=== PATIENT | female | born 1935 | race Caucasian/White ===

== ENCOUNTER 2017-11-29 15:29 | Inpatient (IN) | payer MEDICARE, BC ==
[~2017-11-29] VITALS: Ht 160 cm; Wt 74.8 kg
[2017-11-29 15:34] VITALS: BP 126/46
--- NOTE | 2017-11-29 15:41 | Emergency Room Report ---
History of Present Illness General Chief Complaint: Multiple Trauma/Fall Source: Patient, EMS Present Illness HPI Patient is an 82-year-old female who presented after increased left hip pain after a fall. The patient reportedly fell onto her left side. Patient had normally been a ambulatory without assistance. Patient was walking down one step at the time. There is no reported loss of consciousness. The patient was noted to have increased pain to her left hip and had been unable to ambulate after fall. Brought in by EMS Allergies: Coded Allergies: No Known Allergies (Unverified , 11/29/17) Patient History Past Medical History: see triage record, dementia Reviewed Nursing Documentation: PMH: Agreed; PSxH: Agreed Nursing Documentation-PMH Past Medical History: No History, Except For Physical Exam Vital Signs Date Time Temp Pulse Resp B/P (MAP) Pulse Ox O2 Delivery O2 Flow Rate FiO2 11/29/17 15:24 98.2 75 18 154/87 99 Room Air 98.2 Sp02 EP Interpretation: reviewed, normal General Appearance: normal inspection, well appearing, no apparent distress, alert, Chronically Ill Head: atraumatic Eyes: bilateral eye PERRL ENT: normal ENT inspection, hearing grossly normal, normal voice Neck: normal inspection, full range of motion, supple, no bony tend Respiratory: normal inspection, lungs clear, normal breath sounds, no respiratory distress, no retraction, no wheezing Cardiovascular #1: regular rate, rhythm, no edema Gastrointestinal: normal inspection, normal bowel sounds, non tender, soft, no guarding, no hernia Genitourinary: no CVA tenderness Musculoskeletal: normal inspection, back normal, other - left hip external rotation and shortening Neurologic: normal inspection, alert, responsive, core blower III-XII nml as tested, speech normal, other - marked confusion Psychiatric: normal inspection, mood/affect normal Skin: normal inspection, normal color, no rash Medical Decision Making Diagnostic Impression: Primary Impression: Fall Additional Impressions: Left displaced femoral neck fracture Dementia ER Course Patient presented after a fall. Differential diagnosis included was not limited to neck fracture, CVA, close head injury, syncopal episode, basilar ischemia, hip fracture among others.Because of complexity of patient's case laboratory testing and imaging studies were ordered. EKG interpreted by me showed normal sinus rhythm 65with no acute ST or T Wave changes.CT of the left hip read by radiology showed the left hip fracture. The Correa catheter was placed due to the patient's inability to ambulate. The patient given IV pain medications. Dr. Satinder Santoyo was contacted for inpatient management. Dr. Sukh Braxton was contacted for Orthopedic consult. Labs Test 11/29/17 15:50 White Blood Count 7.3 K/UL (4.8-10.8) Red Blood Count 4.21 M/UL (4.20-5.40) Hemoglobin 13.4 G/DL (12.0-16.0) Hematocrit 38.7 % (37.0-47.0) Mean Corpuscular Volume 92 FL (80-99) Mean Corpuscular Hemoglobin 31.9 PG (27.0-31.0) Mean Corpuscular Hemoglobin Concent 34.7 G/DL (32.0-36.0) Red Cell Distribution Width 11.2 % (11.6-14.8) Platelet Count 152 K/UL (150-450) Mean Platelet Volume 7.0 FL (6.5-10.1) Neutrophils (%) (Auto) 78.1 % (45.0-75.0) Lymphocytes (%) (Auto) 14.3 % (20.0-45.0) Monocytes (%) (Auto) 6.2 % (1.0-10.0) Eosinophils (%) (Auto) 0.8 % (0.0-3.0) Basophils (%) (Auto) 0.6 % (0.0-2.0) EKG Diagnostic Results Rate: normal Rhythm: NSR ST Segments: no acute changes Last Vital Signs Date Time Temp Pulse Resp B/P (MAP) Pulse Ox O2 Delivery O2 Flow Rate FiO2 11/29/17 15:24 98.2 75 18 154/87 99 Room Air 98.2 Status: unchanged Disposition: ADMITTED INPATIENT Condition: Abner Denise Nov 29, 2017 15:41
[2017-11-29] MEDS ORDERED: Morphine Sulfate 2mg/ml Inj IVP ONE (16:15)
[2017-11-29 16:33] LABS: BASOPHILS % (AUTO) 0.6 % (0.0-2.0); EOSINOPHILS % (AUTO) 0.8 % (0.0-3.0); HEMATOCRIT 38.7 % (37.0-47.0); HEMOGLOBIN 13.4 G/DL (12.0-16.0); LYMPHOCYTES % (AUTO) 14.3 % (20.0-45.0); MEAN CORPUSCULAR VOLUME 92 FL (80-99); MONOCYTES % (AUTO) 6.2 % (1.0-10.0); NEUTROPHILS % (AUTO) 78.1 % (45.0-75.0); PLATELET COUNT 152 K/UL (150-450); RED BLOOD COUNT 4.21 M/UL (4.20-5.40); RED CELL DISTRIBUTION WIDTH 11.2 % (11.6-14.8); WHITE BLOOD COUNT 7.3 K/UL (4.8-10.8)
[2017-11-29 16:39] LABS: ALANINE AMINOTRANSFERASE 17 U/L (12-78); ALBUMIN 2.4 G/DL (3.4-5.0); ALBUMIN/GLOBULIN RATIO 1.3 (1.0-2.7); ALKALINE PHOSPHATASE 53 U/L (46-116); ANION GAP 7 mmol/L (5-15); ASPARTATE AMINO TRANSFERASE 26 U/L (15-37); BILIRUBIN,TOTAL 0.4 MG/DL (0.2-1.0); BLOOD UREA NITROGEN 17 mg/dL (7-18); CARBON DIOXIDE 21 MMOL/L (21-32); CHLORIDE 117 MMOL/L (98-107); CREATININE 0.4 MG/DL (0.55-1.30); POTASSIUM 3.2 MMOL/L (3.5-5.1); SODIUM 145 MMOL/L (136-145)
--- NOTE | 2017-11-29 16:55 | Diagnostic Imaging Report ---
Indication: Left hip pain Technique: No IV contrast per trauma protocol. Spiral acquisitions obtained through the left hip Multiplanar reconstructions were generated. Total dose length product 388.96 mGycm. CTDIvol(s) 15.09 mGy. Radiation dose was minimized using automated exposure control Comparison: none Findings: There is a fracture of the distal femoral neck. This is posteriorly angulated and slightly overriding. No associated pelvic fracture. There is minimal ecchymosis of the overlying subcutaneous fat. There are degenerative changes of the lumbosacral spine. There is colonic diverticulosis. Uterus is absent, presumably postsurgically. Impression: Positive for left distal femoral neck fracture Findings discussed by phone with Dr. Glover in the emergency room at the time of interpretation The CT scanner at [facility] is accredited by the [employer] and the scans are performed using protocols designed to limit radiation exposure to as low as reasonably achievable to attain images of sufficient resolution adequate for diagnostic evaluation.
[2017-11-29] MEDS ORDERED: VITAMIN D400 INTLU ORAL (17:14)
[2017-11-29] MEDS ORDERED: ATORVASTATIN CA20 MG ORAL (17:14)
[2017-11-29] MEDS ORDERED: TRAZODONE HCL150 MG ORAL (17:14)
[2017-11-29] MEDS ORDERED: VITAMIN B-122000 MC1 PO (17:14)
[2017-11-29] MEDS ORDERED: PROLIA60 MG/1 ML SUBQ (17:14)
[2017-11-29] MEDS ORDERED: CALCIUM 500 +1 EAC3 PO (17:14)
[2017-11-29 17:28] LABS: APPEARANCE,URINE CLEAR; BILIRUBIN, URINE NEGATIVE (NEGATIVE); COLOR,URINE PALE YELLOW; GLUCOSE, URINE (UA) 4+ (NEGATIVE); KETONES,URINE NEGATIVE (NEGATIVE); LEUKOCYTE ESTERASE ,URINE NEGATIVE (NEGATIVE); NITRITE,URINE NEGATIVE (NEGATIVE); PH,URINE 6 (4.5-8.0); PROTEIN,URINE 1+ (NEGATIVE); UROBILINOGEN,URINE NORMAL MG/DL (0.0-1.0)
[2017-11-29] MEDS ORDERED: Miralax 17gm pkt ORAL PRN (17:30)
[2017-11-29] MEDS ORDERED: Mylanta II UD 30ml ORAL PRN (17:30)
[2017-11-29 17:31] VITALS: BP 135/75
[2017-11-29] MEDS ORDERED: CALCIUM 500 +1 EAC2 PO (18:06)
[2017-11-29] MEDS ORDERED: CALCIUM 500-VI1 EACH PO (18:06)
[2017-11-29] MEDS ORDERED: VITAMIN B-12500 MCG ORAL (18:08)
[2017-11-29] MEDS ORDERED: TRAZODONE HCL50 MG ORAL (18:10)
[2017-11-29] MEDS ORDERED: VITAMIN D1000 UNI1 ORAL (18:11)
[2017-11-29] MEDS ORDERED: OCUVITE LUTEIN1 EAC2 PO (18:12)
[2017-11-29] MEDS ORDERED: ASPIR 8181 MG ORAL (18:12)
[2017-11-29] MEDS ORDERED: DOCUSATE SODIU100 MG ORAL (18:13)
[2017-11-29 18:30] VITALS: BP 139/62
[2017-11-29] MEDS: D5 1/2NS 1,000 ML IV SCH (19:22)
[2017-11-29 20:00] VITALS: BP 140/60
[2017-11-29] MEDS: Atorvastatin 20mg tab ORAL SCH (20:12)
[2017-11-29] MEDS: Zolpidem 5mg tab ORAL PRN ×2 (20:12→23:04)
[2017-11-29] MEDS: Heparin 5000 units/ml inj SUBQ SCH (20:16)
[2017-11-29] MEDS ORDERED: TraZODone HCl 25 mg tablet ORAL SCH (21:00)
[2017-11-30] VITALS (7 sets, daily range): BP systolic 100–154; BP diastolic 56–76
[2017-11-30] MEDS: Heparin 5000 units/ml inj SUBQ SCH ×2 (08:42→20:40)
[2017-11-30 08:49] LABS: HEMATOCRIT 36.3 % (37.0-47.0); MEAN CORPUSCULAR VOLUME 92 FL (80-99); PLATELET COUNT 140 K/UL (150-450); RED BLOOD COUNT 3.96 M/UL (4.20-5.40); RED CELL DISTRIBUTION WIDTH 11.2 % (11.6-14.8); WHITE BLOOD COUNT 9.9 K/UL (4.8-10.8)
[2017-11-30 09:09] LABS: ALANINE AMINOTRANSFERASE 22 U/L (12-78); ALBUMIN 3.5 G/DL (3.4-5.0); ALBUMIN/GLOBULIN RATIO 1.1 (1.0-2.7); ALKALINE PHOSPHATASE 65 U/L (46-116); ANION GAP 9 mmol/L (5-15); ASPARTATE AMINO TRANSFERASE 21 U/L (15-37); BLOOD UREA NITROGEN 20 mg/dL (7-18); CALCIUM 8.4 MG/DL (8.5-10.1); CARBON DIOXIDE 24 MMOL/L (21-32); CHLORIDE 106 MMOL/L (98-107); CREATININE 0.7 MG/DL (0.55-1.30); POTASSIUM 3.8 MMOL/L (3.5-5.1); SODIUM 138 MMOL/L (136-145)
--- NOTE | 2017-11-30 09:18 | Diagnostic Imaging Report ---
Indication: Altered mental status Technique: Contiguous 5 mm thick transaxial imaging of the head obtained in a Siemens Sensation [address] scanner. Soft tissue and bone windows generated. Automatic Exposure Control was utilized. Total Dose length Product (DLP): 2273.[address] Dose Index Volume (CTDIvol): 70.38,70.38 mGy Comparison: none Findings: There is moderate prominence of the ventricles, basal cisterns, and cerebral sulci consistent with atrophy. Moderate, nonspecific, white matter hypoattenuation is noted throughout the brain consistent with chronic small vessel disease. There is no midline shift, edema, acute hemorrhage, mass effect, or abnormal extra-axial fluid collections. Bones and extra osseous soft tissues are unremarkable. Impression: No acute intracranial bleed, mass effect or edema. Moderate atrophy of the brain. Evidence of chronic small vessel disease involving white matter tracts. [facility] has communicated the preliminary results to the Emergency Department. Their findings are largely concordant with this report. The CT scanner at [facility] is accredited by the [employer] and the scans are performed using dose optimization techniques as appropriate to a performed exam including Automatic Exposure control.
--- NOTE | 2017-11-30 09:47 | Diagnostic Imaging Report ---
Indication: Pain Findings: 3 views of the left elbow were obtained. No acute fractures, malalignment, erosions or periostitis are identified. Soft tissues are unremarkable. Impression: No acute injury
--- NOTE | 2017-11-30 09:56 | Diagnostic Imaging Report ---
Indications: hip pain Findings: Two views of the left hip were obtained. There is an acute intracapsular fracture of the left femoral neck. Slight impaction and displacement noted. Correa catheter is present. Bones are osteopenic. Degenerative changes of both sacroiliac joints noted. IMPRESSION: Acute left femoral neck fracture
--- NOTE | 2017-11-30 12:08 | Consultation ---
Consult Note Consult Note patient seen and evaluated. Left hip subcapital femoral neck fracture. Discussed with family and will proceed for left hip hemiarthroplasty once medically cleared. Plan on proceeding on Saturday. Thank you RIMMA BEARDEN Nov 30, 2017 12:08
[2017-11-30] MEDS: D5 1/2NS 1,000 ML IV SCH (13:52)
--- NOTE | 2017-11-30 14:15 | Consultation ---
History of Present Illness General Date patient seen: Nov 30, 2017 Chief Complaint: Multiple Trauma/Fall Present Illness HPI 82-year-old female with any major PMHx except for Alzheimer, presented to ER by paramedics after increased left hip pain after a fall. The patient reportedly fell onto her left side. There is no reported loss of consciousness. she was diagnosed to have L hip fracture and admitted for further work up. Allergies: Coded Allergies: ALPRAZOLAM (Verified Allergy, Unknown, 11/29/17) CYCLOBENZAPRINE (Verified Allergy, Unknown, 11/29/17) TRAMADOL (Verified Allergy, Unknown, 11/29/17) Medication History Scheduled Aspirin* (Aspir 81*), 81 MG ORAL DAILY, (Reported) Atorvastatin Calcium* (Atorvastatin Calcium*), 20 MG ORAL BEDTIME, (Reported) Cholecalciferol (Vitamin D3)* (Vitamin D*), 4,000 UNITS ORAL DAILY, (Reported) Cyanocobalamin (Vitamin B-12)* (Vitamin B-12*), 1,000 MCG ORAL EVERY OTHER DAY, (Reported) Denosumab (Prolia), 60 MG SUBQ EVERY 6 MONTHS, (Reported) Docusate Sodium* (Docusate Sodium*), 100 MG ORAL DAILY, (Reported) Lutein/Zeaxanthin (Ocuvite Lutein 25-5 Mg Softgel), 1 EACH PO DAILY, (Reported) Trazodone Hcl* (Desyrel*), 25 MG ORAL ONCE, (Reported) Miscellaneous Medications Calcium Carbonate/Vitamin D3 (Calcium 500 + Vit D Caplet), 2 EACH PO, (Reported) Patient History Healthcare decision maker MARGE ORTEGA Resuscitation status Full Code Advanced Directive on File Past Medical/Surgical History Past Medical/Surgical History: (1) Dementia Review of Systems Constitutional: Reports: no symptoms ENT: Reports: no symptoms Respiratory: Reports: no symptoms Cardiovascular: Reports: no symptoms Physical Exam General Appearance: WD/WN Lines, tubes and drains: peripheral HEENT: normocephalic, atraumatic Neck: non-tender, normal alignment Respiratory/Chest: chest wall non-tender, lungs clear, normal breath sounds Cardiovascular/Chest: normal peripheral pulses, normal rate Abdomen: normal bowel sounds Genitourinary/Rectal: normal genital exam Extremities: normal range of motion Last 24 Hour Vital Signs Date Time Temp Pulse Resp B/P (MAP) Pulse Ox O2 Delivery O2 Flow Rate FiO2 11/30/17 12:42 98.5 11/30/17 12:00 98.2 83 18 123/59 97 Room Air 98.2 11/30/17 11:43 98.0 11/30/17 08:00 98.0 95 20 100/69 95 Room Air 98.0 11/30/17 04:00 98.7 53 19 133/57 99 Room Air 98.7 11/30/17 00:00 97.8 73 18 141/65 98 Room Air 97.8 11/29/17 20:00 98.2 67 19 140/60 96 Room Air 98.2 11/29/17 18:32 97.1 60 14 135/75 100 Room Air 97.1 11/29/17 18:30 97.2 59 21 139/62 100 Room Air 97.2 11/29/17 17:31 97.1 60 14 135/75 100 Room Air 97.1 11/29/17 17:04 97.1 11/29/17 16:34 97.4 11/29/17 15:34 97.4 67 17 126/46 100 Room Air 97.4 11/29/17 15:24 98.2 75 18 154/87 99 Room Air 98.2 Intake and Output 11/29/17 11/30/17 19:00 07:00 Intake Total 550 ml Output Total 450 ml Balance 100 ml Intake IV Total 550 ml Output Urine Total 450 ml Laboratory Tests Test 11/29/17 15:50 11/29/17 17:05 11/30/17 08:25 White Blood Count 7.3 K/UL (4.8-10.8) 9.9 K/UL (4.8-10.8) Red Blood Count 4.21 M/UL (4.20-5.40) 3.96 M/UL (4.20-5.40) L Hemoglobin 13.4 G/DL (12.0-16.0) 13.0 G/DL (12.0-16.0) Hematocrit 38.7 % (37.0-47.0) 36.3 % (37.0-47.0) L Mean Corpuscular Volume 92 FL (80-99) 92 FL (80-99) Mean Corpuscular Hemoglobin 31.9 PG (27.0-31.0) H 32.9 PG (27.0-31.0) H Mean Corpuscular Hemoglobin Concent 34.7 G/DL (32.0-36.0) 35.9 G/DL (32.0-36.0) Red Cell Distribution Width 11.2 % (11.6-14.8) L 11.2 % (11.6-14.8) L Platelet Count 152 K/UL (150-450) 140 K/UL (150-450) L Mean Platelet Volume 7.0 FL (6.5-10.1) 6.2 FL (6.5-10.1) L Neutrophils (%) (Auto) 78.1 % (45.0-75.0) H % (45.0-75.0) Lymphocytes (%) (Auto) 14.3 % (20.0-45.0) L % (20.0-45.0) Monocytes (%) (Auto) 6.2 % (1.0-10.0) % (1.0-10.0) Eosinophils (%) (Auto) 0.8 % (0.0-3.0) % (0.0-3.0) Basophils (%) (Auto) 0.6 % (0.0-2.0) % (0.0-2.0) Prothrombin Time 10.8 SEC (9.30-11.50) Prothromb Time International Ratio 1.0 (0.9-1.1) Activated Partial Thromboplast Time 24 SEC (23-33) Sodium Level 145 MMOL/L (136-145) 138 MMOL/L (136-145) Potassium Level 3.2 MMOL/L (3.5-5.1) L 3.8 MMOL/L (3.5-5.1) Chloride Level 117 MMOL/L (98-107) H 106 MMOL/L (98-107) Carbon Dioxide Level 21 MMOL/L (21-32) 24 MMOL/L (21-32) Anion Gap 7 mmol/L (5-15) 9 mmol/L (5-15) Blood Urea Nitrogen 17 mg/dL (7-18) 20 mg/dL (7-18) H Creatinine 0.4 MG/DL (0.55-1.30) L 0.7 MG/DL (0.55-1.30) # Estimat Glomerular Filtration Rate mL/min (>60) mL/min (>60) Glucose Level 151 MG/DL (74-106) H 145 MG/DL (74-106) H Calcium Level 6.0 MG/DL (8.5-10.1) L 8.4 MG/DL (8.5-10.1) #L Total Bilirubin 0.4 MG/DL (0.2-1.0) 1.0 MG/DL (0.2-1.0) Aspartate Amino Transf (AST/SGOT) 26 U/L (15-37) 21 U/L (15-37) Alanine Aminotransferase (ALT/SGPT) 17 U/L (12-78) 22 U/L (12-78) Alkaline Phosphatase 53 U/L (46-116) 65 U/L (46-116) Troponin I 0.000 ng/mL (0.000-0.056) Total Protein 4.3 G/DL (6.4-8.2) L 6.6 G/DL (6.4-8.2) # Albumin 2.4 G/DL (3.4-5.0) L 3.5 G/DL (3.4-5.0) Globulin 1.9 g/dL 3.1 g/dL Albumin/Globulin Ratio 1.3 (1.0-2.7) 1.1 (1.0-2.7) Urine Color Pale yellow Urine Appearance Clear Urine pH 6 (4.5-8.0) Urine Specific [place] 1.020 (1.005-1.035) Urine Protein 1+ (NEGATIVE) H Urine Glucose (UA) 4+ (NEGATIVE) H Urine Ketones Negative (NEGATIVE) Urine Occult Blood 2+ (NEGATIVE) H Urine Nitrite Negative (NEGATIVE) Urine Bilirubin Negative (NEGATIVE) Urine Urobilinogen Normal MG/DL (0.0-1.0) Urine Leukocyte Esterase Negative (NEGATIVE) Urine RBC 5-10 /HPF (0 - 2) H Urine WBC 2-4 /HPF (0 - 2) Urine Squamous Epithelial Cells Few /LPF (NONE/OCC) Urine Amorphous Sediment Few /LPF (NONE) H Urine Bacteria Moderate /HPF (NONE) H Urine Fine Granular Casts 0-2 /LPF (NONE) H Urine Yeast Few /HPF (NONE) H Urine HCG, Qualitative Negative (NEGATIVE) Differential Total Cells Counted 100 Neutrophils % (Manual) 87 % (45-75) H Lymphocytes % (Manual) 3 % (20-45) L Monocytes % (Manual) 10 % (1-10) Eosinophils % (Manual) 0 % (0-3) Basophils % (Manual) 0 % (0-2) Band Neutrophils 0 % (0-8) Platelet Estimate Decreased L Platelet Morphology Normal Red Blood Cell Morphology Normal Thyroid Stimulating Hormone (TSH) 0.892 uiU/mL (0.358-3.740) Height (Feet): 5 Height (Inches): 3.00 Weight (Pounds): 165 Medications Current Medications Medications (Trade) Dose Ordered Sig/Ebony Route PRN Reason Start Time Stop Time Status Last Admin Dose Admin Acetaminophen (Tylenol) 650 mg Q4H PRN ORAL T>100.5 11/29/17 17:30 12/29/17 17:29 11/30/17 11:43 Al Hydroxide/Mg Hydroxide (Mylanta II) 30 ml Q6H PRN ORAL dyspepsia 11/29/17 17:30 12/29/17 17:29 Atorvastatin Calcium (Lipitor) 20 mg BEDTIME ORAL 11/29/17 21:00 12/29/17 20:59 11/29/17 20:12 Dextrose (Dextrose 50%) 25 ml STAT PRN IV Hypoglycemia 11/29/17 17:45 12/29/17 17:44 Dextrose (Dextrose 50%) 50 ml STAT PRN IV Hypoglycemia 11/29/17 17:30 12/29/17 17:29 Dextrose/Sodium Chloride 1,000 ml @ 50 mls/hr Q20H IV 11/29/17 17:29 12/29/17 17:28 11/30/17 13:52 Heparin Sodium (Porcine) (Heparin 5000 units/ml) 5,000 units EVERY 12 HOURS SUBQ 11/30/17 21:00 12/01/17 12:00 Heparin Sodium (Porcine) (Heparin 5000 units/ml) 5,000 units EVERY 12 HOURS SUBQ 12/02/17 21:00 01/01/18 20:59 Ondansetron HCl (Zofran) 4 mg Q6H PRN IVP Nausea & Vomiting 11/29/17 17:30 12/29/17 17:29 Polyethylene Glycol (Miralax) 17 gm HSPRN PRN ORAL Constipation 11/29/17 17:30 12/29/17 17:29 Trazodone HCl (Desyrel) 25 mg BEDTIME ORAL 11/29/17 21:00 12/29/17 20:59 11/29/17 20:12 Zolpidem Tartrate (Ambien) 5 mg HSPRN PRN ORAL Insomnia 11/29/17 21:00 12/06/17 20:59 11/29/17 23:04 Assessment/Plan Problem List: (1) Left displaced femoral neck fracture ICD Codes: S72.002A - Fracture of unspecified part of neck of left femur, initial encounter for closed fracture SNOMED: 5863430, 768418627 (2) Dementia ICD Codes: F03.90 - Unspecified dementia without behavioral disturbance SNOMED: 68931705 Assessment/Plan med/surg admission symptomatic treatment pain control DVT prophylaxis surgical evaluation Pt is medically cleared for surgery. Jose Garrison MD Nov 30, 2017 14:15
[2017-11-30] MEDS ORDERED: TraZODone 50mg tab ORAL SCH (14:30)
[2017-11-30] MEDS ORDERED: Morphine Sulfate 4mg/ml Inj IVP PRN (17:30)
[2017-11-30] MEDS: Atorvastatin 20mg tab ORAL SCH (20:36)
--- NOTE | 2017-11-30 21:15 | History and Physical Report ---
DATE OF ADMISSION: 11/29/2017 APPROXIMATE TIME: At 9 a.m. SEED POTATO ARRANGER: 1. Fabian Ny M.D. 2. Nancy Durham M.D. 3. Sukh Braxton M.D. CHIEF COMPLAINT: Fracture, left hip. BRIEF HISTORY: This is an 82-year-old female, who lives at home with history of dementia, apparently tripped and fell on left hip, who came to [facility], diagnosed with left hip fracture and admitted to medical floor. Currently, calm, confused, in bed. No complaints. at bedside. PAST MEDICAL HISTORY: Alzheimer dementia. PAST SURGICAL HISTORY: Bladder prolapse. ALLERGIES: Alprazolam, cyclobenzaprine, and tramadol. MEDICATIONS: Include Lipitor, , Ambien, heparin, Zofran, MiraLAX, and Tylenol. SOCIAL HISTORY: No smoke. No alcohol. No intravenous drug abuse. FAMILY HISTORY: Noncontributory. REVIEW OF SYSTEMS: No chest pain. No shortness of breath. No nausea. No diarrhea. No loss of consciousness. PHYSICAL EXAMINATION: GENERAL: Calm in bed, oriented x2, in no acute distress. VITAL SIGNS: Temperature is 98, pulse 95, respirations 20, and blood pressure 100/69. CARDIOVASCULAR: No murmur. LUNGS: Distant and clear. ABDOMEN: Bowel sounds positive. Soft, nontender, and nondistended. EXTREMITIES: No cyanosis, clubbing, or edema. Left leg slightly half-inch shorter, externally rotated. NEUROLOGIC: The patient moves all extremities, slightly weak. LABORATORY AND DIAGNOSTIC DATA: Platelets 140, otherwise CBC is normal. BMP shows BUN 20, glucose 145, otherwise normal. INR is 1.0. Urinalysis show 2+ occult blood, 4+ glucose. ASSESSMENT: 1. Fall, left hip fracture. 2. Alzheimer dementia. 3. Diabetes. PLAN: 1. Blood sugar control. 2. Resume home medications. 3. OT/PT and dietary evaluation. 4. CBC, BMP in the morning preop for possible surgery. 5. We will continue to follow the patient medically. Satinder Santoyo D.O. DR: LAZARO JOB#: [id number] CC:
--- NOTE | 2017-11-30 21:30 | Consultation ---
DATE OF CONSULTATION: 11/30/2017 ORTHOPEDIC CONSULTATION CONSULTING PHYSICIAN: Sukh Braxton M.D. REQUESTING PHYSICIAN: Satinder Santoyo D.O. CHIEF COMPLAINT: Left hip fracture. BRIEF HISTORY: The patient is an 82-year-old female, who has history of Alzheimer dementia, who misstepped on 2 steps and fell down landing on her left hip. She had immediate onset of pain about the left hip. She was brought in via paramedics to [facility]. X-ray and CT scan showed a subcapital femoral neck fracture. She was admitted for definitive care. PAST MEDICAL HISTORY: Significant for history of Alzheimer dementia, although generally she is very healthy. PAST SURGICAL HISTORY: None. MEDICATIONS: Reviewed and reconciled. ALLERGIES: She has poor reaction to alprazolam, cyclobenzaprine, and tramadol which made her hallucinate for a couple of days. SOCIAL HISTORY: She has very supportive family. Her is at the bedside and she is alert and oriented. Also her son was at the bedside and history was obtained from them. She is apparently generally independent ambulator although because of Alzheimer's, she does not ambulate very often. REVIEW OF SYSTEMS: Noncontributory. PHYSICAL EXAMINATION: GENERAL: She is a very pleasant lady, cooperative with examination. She has dementia and she is alert and oriented. MUSCULOSKELETAL: Examination of left hip reveals that she has pain about the left hip with flexion, extension, abduction, external and internal rotation. Her left leg is slightly shortened and externally rotated. SKIN: There is no skin breakdown or ulcers. DIAGNOSTIC DATA: X-ray of left hip was reviewed. There is evidence of a left hip subcapital femoral neck fracture with displacement. IMPRESSION: Garden IV subcapital femoral neck fracture with displacement. PLAN: At this time, we will go ahead and proceed with left hip hemiarthroplasty. Risks, benefits, and complications of surgery were discussed with the family. They all understand. We will go ahead and proceed with surgical intervention as described. Risks, benefits, and complications of surgery were discussed with them of possible infection, bleeding, neurovascular complication, possibility of leg length discrepancy, need for walker or even wheelchair down the line as well as blood clots, DVT, and PE were discussed. Possible dislocation was discussed. All understand the risks and complications of the surgery and would like to proceed with it. All questions were answered. We will go ahead and proceed with surgery once she is medically optimized. I am going to order 2D echo to be done and plan on proceeding in the next day or two once she is medically optimized for surgery. All questions were answered of the family. Consent will be signed by the family. Sukh Braxotn M.D. DR: Bk JOB#: [id number] CC:
[2017-12-01 04:00] VITALS: BP 143/58
[2017-12-01 07:27] LABS: BASOPHILS % (AUTO) 0.5 % (0.0-2.0); EOSINOPHILS % (AUTO) 2.1 % (0.0-3.0); HEMATOCRIT 35.8 % (37.0-47.0); HEMOGLOBIN 12.6 G/DL (12.0-16.0); MEAN CORPUSCULAR VOLUME 93 FL (80-99); MONOCYTES % (AUTO) 7.9 % (1.0-10.0); NEUTROPHILS % (AUTO) 79.5 % (45.0-75.0); PLATELET COUNT 129 K/UL (150-450); RED BLOOD COUNT 3.86 M/UL (4.20-5.40); RED CELL DISTRIBUTION WIDTH 11.1 % (11.6-14.8)
[2017-12-01 07:51] LABS: ANION GAP 8 mmol/L (5-15); BLOOD UREA NITROGEN 16 mg/dL (7-18); CALCIUM 8.3 MG/DL (8.5-10.1); CARBON DIOXIDE 24 MMOL/L (21-32); CHLORIDE 105 MMOL/L (98-107); CREATININE 0.7 MG/DL (0.55-1.30); POTASSIUM 3.9 MMOL/L (3.5-5.1); SODIUM 137 MMOL/L (136-145)
[2017-12-01 08:00] VITALS: BP 146/70
--- NOTE | 2017-12-01 08:46 | General Progress Note ---
Assessment/Plan Problem List: (1) Dementia ICD Codes: F03.90 - Unspecified dementia without behavioral disturbance SNOMED: 56455589 (2) Fall ICD Codes: W19.XXXA - Unspecified fall, initial encounter SNOMED: 6210311, 024428953 (3) Left displaced femoral neck fracture ICD Codes: S72.002A - Fracture of unspecified part of neck of left femur, initial encounter for closed fracture SNOMED: 6520697, [id number] Status: unchanged Assessment/Plan ot pt diet pain control cbc bmp am pending sx Subjective Constitutional: Reports: weakness Allergies: Coded Allergies: ALPRAZOLAM (Verified Allergy, Unknown, 11/29/17) CYCLOBENZAPRINE (Verified Allergy, Unknown, 11/29/17) TRAMADOL (Verified Allergy, Unknown, 11/29/17) All Systems: reviewed and negative except above Subjective sleepy calm pending sx Objective Last 24 Hour Vital Signs Date Time Temp Pulse Resp B/P (MAP) Pulse Ox O2 Delivery O2 Flow Rate FiO2 12/01/17 08:00 98.1 70 20 146/70 97 98.1 12/01/17 04:00 97.7 56 18 143/58 98 Room Air 97.7 11/30/17 23:55 97.9 55 16 154/61 99 Room Air 97.9 11/30/17 20:00 98.1 57 18 122/56 98 Room Air 98.1 11/30/17 16:00 98.9 63 18 111/76 98 Room Air 98.9 11/30/17 12:42 98.5 11/30/17 12:00 98.2 83 18 123/59 97 Room Air 98.2 11/30/17 11:43 98.0 Intake and Output 11/30/17 12/01/17 19:00 07:00 Intake Total 650 ml 550 ml Output Total 400 ml 600 ml Balance 250 ml -50 ml Intake IV Total 250 ml 550 ml Other 400 ml Output Urine Total 400 ml 600 ml Stool Total 0 ml Laboratory Tests 12/01/17 06:30: White Blood Count 8.0, Red Blood Count 3.86L, Hemoglobin 12.6, Hematocrit 35.8L , Mean Corpuscular Volume 93, Mean Corpuscular Hemoglobin 32.6H, Mean Corpuscular Hemoglobin Concent 35.1, Red Cell Distribution Width 11.1L, Platelet Count 129L, Mean Platelet Volume 7.1, Neutrophils (%) (Auto) 79.5H, Lymphocytes (%) (Auto) 10.0L, Monocytes (%) (Auto) 7.9, Eosinophils (%) (Auto) 2.1, Basophils (%) (Auto) 0.5, Sodium Level 137, Potassium Level 3.9, Chloride Level 105, Carbon Dioxide Level 24, Anion Gap 8, Blood Urea Nitrogen 16, Creatinine 0.7, Estimat Glomerular Filtration Rate , Glucose Level 131H, Calcium Level 8.3L Height (Feet): 5 Height (Inches): 3.00 Weight (Pounds): 165 General Appearance: lethargic EENT: normal ENT inspection Neck: normal alignment Cardiovascular: normal peripheral pulses, normal rate, regular rhythm Respiratory/Chest: chest wall non-tender, lungs clear, normal breath sounds Abdomen: normal bowel sounds, non tender, soft Extremities: normal inspection Edema: no edema noted Arm (L), no edema noted Arm (R), no edema noted Leg (L), no edema noted Leg (R), no edema noted Pedal (L), no edema noted Pedal (R), no edema noted Generalized Neurologic: motor weakness Skin: normal pigmentation, warm/dry ARVIN JOVEL Dec 01, 2017 08:46
[2017-12-01] MEDS: Memantine 5 MG TAB ORAL SCH ×2 (08:57→18:00)
[2017-12-01] MEDS: Heparin 5000 units/ml inj SUBQ SCH (09:00)
[2017-12-01] MEDS: D5 1/2NS 1,000 ML IV SCH (09:04)
--- NOTE | 2017-12-01 11:55 | Diagnostic Imaging Report ---
Indication: Chest pain Comparison: None A single view chest radiograph was obtained. Findings: No definite infiltrate or pulmonary vascular congestion identified. The heart is enlarged. The aorta is mildly enlarged consistent with atherosclerotic vascular disease. The bones are osteopenic. Impression: No acute disease
[2017-12-01 12:00] VITALS: BP 159/75
--- NOTE | 2017-12-01 12:19 | Pulmonology Progress Note ---
Assessment/Plan Problems: (1) Left displaced femoral neck fracture (2) Dementia (3) Delirium Assessment/Plan symptomatic treatment pain control dvt prophylaxis surgery in AM. Subjective ROS Limited/Unobtainable: No Interval Events: still confused, wants to go home now Allergies: Coded Allergies: ALPRAZOLAM (Verified Allergy, Unknown, 11/29/17) CYCLOBENZAPRINE (Verified Allergy, Unknown, 11/29/17) TRAMADOL (Verified Allergy, Unknown, 11/29/17) Objective Last 24 Hour Vital Signs Date Time Temp Pulse Resp B/P (MAP) Pulse Ox O2 Delivery O2 Flow Rate FiO2 12/01/17 08:00 98.1 70 20 146/70 97 98.1 12/01/17 04:00 97.7 56 18 143/58 98 Room Air 97.7 11/30/17 23:55 97.9 55 16 154/61 99 Room Air 97.9 11/30/17 20:00 98.1 57 18 122/56 98 Room Air 98.1 11/30/17 16:00 98.9 63 18 111/76 98 Room Air 98.9 11/30/17 12:42 98.5 Intake and Output 11/30/17 12/01/17 19:00 07:00 Intake Total 650 ml 550 ml Output Total 400 ml 600 ml Balance 250 ml -50 ml Intake IV Total 250 ml 550 ml Other 400 ml Output Urine Total 400 ml 600 ml Stool Total 0 ml Objective General Appearance: WD/WN Lines, tubes and drains: peripheral HEENT: normocephalic, atraumatic Neck: non-tender, normal alignment Respiratory/Chest: chest wall non-tender, lungs clear Breasts: no masses Cardiovascular/Chest: normal rate, regularly irregular Genitourinary/Rectal: normal genital exam, heme negative stool Extremities: normal range of motion Microbiology Date/Time Source Procedure Growth Status 11/29/17 17:05 Urine,Clean Catch Urine Culture - Preliminary NO GROWTH AFTER 24 HOURS Resulted Laboratory Tests 12/01/17 06:30: White Blood Count 8.0, Red Blood Count 3.86L, Hemoglobin 12.6, Hematocrit 35.8L , Mean Corpuscular Volume 93, Mean Corpuscular Hemoglobin 32.6H, Mean Corpuscular Hemoglobin Concent 35.1, Red Cell Distribution Width 11.1L, Platelet Count 129L, Mean Platelet Volume 7.1, Neutrophils (%) (Auto) 79.5H, Lymphocytes (%) (Auto) 10.0L, Monocytes (%) (Auto) 7.9, Eosinophils (%) (Auto) 2.1, Basophils (%) (Auto) 0.5, Sodium Level 137, Potassium Level 3.9, Chloride Level 105, Carbon Dioxide Level 24, Anion Gap 8, Blood Urea Nitrogen 16, Creatinine 0.7, Estimat Glomerular Filtration Rate , Glucose Level 131H, Calcium Level 8.3L Current Medications Medications (Trade) Dose Ordered Sig/Ebony Route PRN Reason Start Time Stop Time Status Last Admin Dose Admin Acetaminophen (Tylenol) 650 mg Q4H PRN ORAL T>100.5 11/29/17 17:30 12/29/17 17:29 11/30/17 11:43 Acetaminophen/ Hydrocodone Bitart ([place] 5/325) 1 tab Q6H PRN ORAL Moderate Pain (Pain Scale 4-6) 11/30/17 17:30 12/07/17 17:29 Al Hydroxide/Mg Hydroxide (Mylanta II) 30 ml Q6H PRN ORAL dyspepsia 11/29/17 17:30 12/29/17 17:29 Atorvastatin Calcium (Lipitor) 20 mg BEDTIME ORAL 11/29/17 21:00 12/29/17 20:59 11/30/17 20:36 Dextrose (Dextrose 50%) 25 ml STAT PRN IV Hypoglycemia 11/29/17 17:45 12/29/17 17:44 Dextrose (Dextrose 50%) 50 ml STAT PRN IV Hypoglycemia 11/29/17 17:30 12/29/17 17:29 Dextrose/Sodium Chloride 1,000 ml @ 50 mls/hr Q20H IV 11/29/17 17:29 12/29/17 17:28 12/01/17 09:04 Heparin Sodium (Porcine) (Heparin 5000 units/ml) 5,000 units EVERY 12 HOURS SUBQ 12/02/17 21:00 01/01/18 20:59 Memantine (Namenda) 5 mg BID ORAL 12/01/17 09:00 12/31/17 08:59 12/01/17 08:57 Morphine Sulfate (Morphine Sulfate) 2 mg Q4H PRN IVP Severe Pain (Pain Scale 7-10) 11/30/17 17:30 12/07/17 17:29 Ondansetron HCl (Zofran) 4 mg Q6H PRN IVP Nausea & Vomiting 11/29/17 17:30 12/29/17 17:29 Polyethylene Glycol (Miralax) 17 gm HSPRN PRN ORAL Constipation 11/29/17 17:30 12/29/17 17:29 Quetiapine Fumarate (SEROquel) 25 mg EVERY 6 HOURS PRN ORAL Agitation 11/30/17 18:45 12/30/17 18:44 12/01/17 10:51 Quetiapine Fumarate (SEROquel) 25 mg QHS ORAL 11/30/17 21:00 12/30/17 20:59 11/30/17 19:37 Zolpidem Tartrate (Ambien) 5 mg HSPRN PRN ORAL Insomnia 11/29/17 21:00 12/06/17 20:59 11/29/17 23:04 Jose Garrison MD Dec 01, 2017 12:19
[2017-12-01 16:00] VITALS: BP 143/91
--- NOTE | 2017-12-01 17:03 | Cardiology Report ---
APPROVED REPORT EXAM: Two-dimensional and M-mode echocardiogram with Doppler and color Doppler. INDICATION Pre-op M-Mode DIMENSIONS IVSd1.1 (0.7-1.1cm)Left Atrium (MM)4.4 (1.6-4.0cm) LVDd6.3 (3.5-5.6cm)Aortic Root3.3 (2.0-3.7cm) PWd0.9 (0.7-1.1cm)Aortic Cusp Exc.2.0 (1.5-2.0cm) LVDs3.7 (2.5-4.0cm) PWs1.2 cm Technically limited and difficult study due to poor acoustical windows. Images taken from subcostal. Normal left ventricular chamber size, systolic function and wall motion to the extent visualized. Left ventricular ejection fraction estimated to be 55-60%. No evidence of left ventricular hypertrophy. No evidence of pericardial or pleural effusion. All other cardiac chamber sizes are within normal limits. Focal aortic valve sclerosis with adequate cusp excursion. Thickened mitral valve leaflets with normal excursion. Mild mitral annulus and aortic root calcification. Pulmonic valve not well visualized. Normal tricuspid valve structure. IVC is normal in size and collapsible with respiration. A color flow and spectral Doppler study was performed and revealed: Trace aortic regurgitation. Trace mitral regurgitation. Mitral inflow velocities indicates possible pseudo normalization pattern implying significant left ventricular diastolic dysfunction. Trace tricuspid regurgitation.
--- NOTE | 2017-12-01 17:32 | Cardiology Report ---
APPROVED REPORT EKG Measurement Heart [id number] Normal sinus rhythm Normal ECG
[2017-12-01 19:56] VITALS: BP 114/77
[2017-12-01] MEDS: Norco 5mg/325mg tab ORAL PRN (20:34)
[2017-12-01] MEDS: Atorvastatin 20mg tab ORAL SCH (20:34)
[2017-12-02] VITALS (16 sets, daily range): BP systolic 130–163; BP diastolic 62–97
[2017-12-02] MEDS: Norco 5mg/325mg tab ORAL PRN ×2 (04:19→20:24)
[2017-12-02] MEDS: D5 1/2NS 1,000 ML IV SCH (04:20)
[2017-12-02 07:03] LABS: BASOPHILS % (AUTO) 0.8 % (0.0-2.0); EOSINOPHILS % (AUTO) 2.5 % (0.0-3.0); HEMATOCRIT 37.1 % (37.0-47.0); HEMOGLOBIN 12.5 G/DL (12.0-16.0); LYMPHOCYTES % (AUTO) 11.8 % (20.0-45.0); MEAN CORPUSCULAR VOLUME 94 FL (80-99); MONOCYTES % (AUTO) 10.1 % (1.0-10.0); NEUTROPHILS % (AUTO) 74.8 % (45.0-75.0); PLATELET COUNT 101 K/UL (150-450); RED BLOOD COUNT 3.93 M/UL (4.20-5.40); RED CELL DISTRIBUTION WIDTH 11.2 % (11.6-14.8); WHITE BLOOD COUNT 7.8 K/UL (4.8-10.8)
[2017-12-02 07:18] LABS: ANION GAP 8 mmol/L (5-15); BLOOD UREA NITROGEN 13 mg/dL (7-18); CALCIUM 7.9 MG/DL (8.5-10.1); CARBON DIOXIDE 23 MMOL/L (21-32); CHLORIDE 106 MMOL/L (98-107); CREATININE 0.7 MG/DL (0.55-1.30); POTASSIUM 3.9 MMOL/L (3.5-5.1); SODIUM 137 MMOL/L (136-145)
[2017-12-02] MEDS: Memantine 5 MG TAB ORAL SCH (07:38)
--- NOTE | 2017-12-02 08:00 | Consultation ---
DATE OF CONSULTATION: 12/01/2017 NOTE: "POOR AUDIO QUALITY" CONSULTING PHYSICIAN: Nancy Durham M.D. ATTENDING/REFERRING PHYSICIAN: Satinder Santoyo D.O. HISTORY OF PRESENT ILLNESS: The patient is an 82-year-old female patient with left hip fracture but this patient also has altered mental status, confusion. She has got poor insight into her illness. She has got no logical plan for her own self-care. Low energy, poor appetite, and loss of interest in activity. psychiatric consultation also. she has had progressive decline in cognition and there has been agitation and insomnia . Because her cognition has declined below baseline, her attending has requested daily psychiatric consultation. As far as very confused, is oriented x2, but not to date or the place that she is in. she denies any suicidal or homicidal ideations at this time. ALLERGIES: She has no known drug allergies. SOCIAL HISTORY: The is patient is financially supported by [employer] and Medicare. As far as she is retired. SUBSTANCE ABUSE HISTORY: Denies drug and alcohol use. MEDICAL HISTORY: see Internal Medicine note for further details. MENTAL STATUS EXAMINATION: This is an 82-year-old female. Appearance disheveled. Attitude irritable and agitated. Affect guarded and restricted. Intellect poor. Mood depressed and anxious. Motor activity, psychomotor retardation. Attention span is poor. paranoia. Insight and judgment is poor. DIAGNOSES: Major depression with psychotic features, rule out pseudodementia. Medical, . Psychosocial stressors, financial. PLAN: The plan for this patient is to treat her with Seroquel 25 mg p.o. nightly and 25 mg Seroquel q.6 hours p.r.n. . I will also add Namenda 5 mg twice a day to prevent further decline in cognition. provided 20 minutes of supportive therapy . Chart was reviewed and discussed with staff. The patient was seen and assessed in the room. . Seen and assessed at bedside. I would like to thank Dr. Satinder Santoyo for this interesting consultation. Nancy Durham M.D. DR: Rich JOB#: [id number] CC:
--- NOTE | 2017-12-02 09:10 | Consultation ---
History of Present Illness General Date patient seen: Dec 02, 2017 Chief Complaint: Multiple Trauma/Fall Present Illness Allergies: Coded Allergies: ALPRAZOLAM (Verified Allergy, Unknown, 11/29/17) CYCLOBENZAPRINE (Verified Allergy, Unknown, 11/29/17) TRAMADOL (Verified Allergy, Unknown, 11/29/17) Medication History Scheduled Aspirin* (Aspir 81*), 81 MG ORAL DAILY, (Reported) Atorvastatin Calcium* (Atorvastatin Calcium*), 20 MG ORAL BEDTIME, (Reported) Cholecalciferol (Vitamin D3)* (Vitamin D*), 4,000 UNITS ORAL DAILY, (Reported) Cyanocobalamin (Vitamin B-12)* (Vitamin B-12*), 1,000 MCG ORAL EVERY OTHER DAY, (Reported) Denosumab (Prolia), 60 MG SUBQ EVERY 6 MONTHS, (Reported) Docusate Sodium* (Docusate Sodium*), 100 MG ORAL DAILY, (Reported) Lutein/Zeaxanthin (Ocuvite Lutein 25-5 Mg Softgel), 1 EACH PO DAILY, (Reported) Trazodone Hcl* (Desyrel*), 25 MG ORAL ONCE, (Reported) Miscellaneous Medications Calcium Carbonate/Vitamin D3 (Calcium 500 + Vit D Caplet), 2 EACH PO, (Reported) Patient History Healthcare decision maker MARGE ORTEGA Resuscitation status Full Code Advanced Directive on File Physical Exam Last 24 Hour Vital Signs Date Time Temp Pulse Resp B/P (MAP) Pulse Ox O2 Delivery O2 Flow Rate FiO2 12/02/17 07:21 98.2 61 20 136/62 97 Room Air 98.2 12/02/17 04:00 97.7 73 17 159/65 97 97.7 12/02/17 00:06 98.1 95 19 130/70 96 98.1 12/01/17 19:56 97.3 91 20 114/77 93 97.3 12/01/17 16:00 98.0 96 20 143/91 96 Room Air 98.0 12/01/17 12:00 Room Air 12/01/17 12:00 97.6 55 20 159/75 96 97.6 Intake and Output 12/01/17 12/02/17 19:00 07:00 Intake Total 850 ml 1030 ml Output Total 9999 ml 800 ml Balance -9149 ml 230 ml Intake Oral 480 ml IV Total 550 ml 550 ml Other 300 ml Output Urine Total 9999 ml 800 ml Stool Total 0 ml Laboratory Tests Test 12/02/17 06:45 White Blood Count 7.8 K/UL (4.8-10.8) Red Blood Count 3.93 M/UL (4.20-5.40) L Hemoglobin 12.5 G/DL (12.0-16.0) Hematocrit 37.1 % (37.0-47.0) Mean Corpuscular Volume 94 FL (80-99) Mean Corpuscular Hemoglobin 31.7 PG (27.0-31.0) H Mean Corpuscular Hemoglobin Concent 33.7 G/DL (32.0-36.0) Red Cell Distribution Width 11.2 % (11.6-14.8) L Platelet Count 101 K/UL (150-450) L Mean Platelet Volume 7.3 FL (6.5-10.1) Neutrophils (%) (Auto) 74.8 % (45.0-75.0) Lymphocytes (%) (Auto) 11.8 % (20.0-45.0) L Monocytes (%) (Auto) 10.1 % (1.0-10.0) H Eosinophils (%) (Auto) 2.5 % (0.0-3.0) Basophils (%) (Auto) 0.8 % (0.0-2.0) Sodium Level 137 MMOL/L (136-145) Potassium Level 3.9 MMOL/L (3.5-5.1) Chloride Level 106 MMOL/L (98-107) Carbon Dioxide Level 23 MMOL/L (21-32) Anion Gap 8 mmol/L (5-15) Blood Urea Nitrogen 13 mg/dL (7-18) Creatinine 0.7 MG/DL (0.55-1.30) Estimat Glomerular Filtration Rate mL/min (>60) Glucose Level 128 MG/DL (74-106) H Calcium Level 7.9 MG/DL (8.5-10.1) L Height (Feet): 5 Height (Inches): 3.00 Weight (Pounds): 165 Medications Current Medications Medications (Trade) Dose Ordered Sig/Ebony Route PRN Reason Start Time Stop Time Status Last Admin Dose Admin Acetaminophen (Tylenol) 650 mg Q4H PRN ORAL T>100.5 11/29/17 17:30 12/29/17 17:29 11/30/17 11:43 Acetaminophen/ Hydrocodone Bitart ([place] 5/325) 1 tab Q6H PRN ORAL Moderate Pain (Pain Scale 4-6) 11/30/17 17:30 12/07/17 17:29 12/02/17 04:19 Al Hydroxide/Mg Hydroxide (Mylanta II) 30 ml Q6H PRN ORAL dyspepsia 11/29/17 17:30 12/29/17 17:29 Atorvastatin Calcium (Lipitor) 20 mg BEDTIME ORAL 11/29/17 21:00 12/29/17 20:59 12/01/17 20:34 Dextrose (Dextrose 50%) 25 ml STAT PRN IV Hypoglycemia 11/29/17 17:45 12/29/17 17:44 Dextrose (Dextrose 50%) 50 ml STAT PRN IV Hypoglycemia 11/29/17 17:30 12/29/17 17:29 Dextrose/Sodium Chloride 1,000 ml @ 50 mls/hr Q20H IV 11/29/17 17:29 12/29/17 17:28 12/02/17 04:20 Heparin Sodium (Porcine) (Heparin 5000 units/ml) 5,000 units EVERY 12 HOURS SUBQ 12/02/17 21:00 01/01/18 20:59 Memantine (Namenda) 5 mg BID ORAL 12/01/17 09:00 12/31/17 08:59 12/01/17 08:57 Morphine Sulfate (Morphine Sulfate) 2 mg Q4H PRN IVP Severe Pain (Pain Scale 7-10) 11/30/17 17:30 12/07/17 17:29 Ondansetron HCl (Zofran) 4 mg Q6H PRN IVP Nausea & Vomiting 11/29/17 17:30 12/29/17 17:29 Polyethylene Glycol (Miralax) 17 gm HSPRN PRN ORAL Constipation 11/29/17 17:30 12/29/17 17:29 Quetiapine Fumarate (SEROquel) 25 mg EVERY 6 HOURS PRN ORAL Agitation 11/30/17 18:45 12/30/17 18:44 12/01/17 10:51 Quetiapine Fumarate (SEROquel) 25 mg QHS ORAL 11/30/17 21:00 12/30/17 20:59 4/8/18 20:34 Zolpidem Tartrate (Ambien) 5 mg HSPRN PRN ORAL Insomnia 11/29/17 21:00 12/06/17 20:59 11/29/17 23:04 Assessment/Plan Assessment/Plan (1) Left hip pain (2) Left hip fracture (3) S/p fall seen dictated. RODOLFO SALDAÑA PAurea Dec 02, 2017 09:10
[2017-12-02] MEDS ORDERED: Bupivacaine 0.5% Inj 30 ml vial INJ ONE (11:59)
--- NOTE | 2017-12-02 13:00 | Pulmonology Progress Note ---
Assessment/Plan Problems: (1) Left displaced femoral neck fracture (2) Dementia (3) Delirium Assessment/Plan still confused symptomatic treatment pain control dvt prophylaxis surgery for today psych evaluation d/w pts and son at the bed site. Subjective ROS Limited/Unobtainable: No Constitutional: Reports: no symptoms HEENT: Repors: no symptoms Respiratory: Reports: no symptoms Cardiovascular: Reports: no symptoms Allergies: Coded Allergies: CYCLOBENZAPRINE (Verified Allergy, Unknown, 11/29/17) TRAMADOL (Verified Allergy, Unknown, 11/29/17) Objective Last 24 Hour Vital Signs Date Time Temp Pulse Resp B/P (MAP) Pulse Ox O2 Delivery O2 Flow Rate FiO2 12/02/17 11:41 97.6 62 20 163/69 97 Room Air 97.6 12/02/17 07:21 98.2 61 20 136/62 97 Room Air 98.2 12/02/17 04:00 97.7 73 17 159/65 97 97.7 12/02/17 00:06 98.1 95 19 130/70 96 98.1 12/01/17 19:56 97.3 91 20 114/77 93 97.3 12/01/17 16:00 98.0 96 20 143/91 96 Room Air 98.0 Intake and Output 12/01/17 12/02/17 19:00 07:00 Intake Total 850 ml 1030 ml Output Total 9999 ml 800 ml Balance -9149 ml 230 ml Intake Oral 480 ml IV Total 550 ml 550 ml Other 300 ml Output Urine Total 9999 ml 800 ml Stool Total 0 ml Objective General Appearance: WD/WN Lines, tubes and drains: peripheral HEENT: normocephalic, atraumatic Neck: non-tender, normal alignment Respiratory/Chest: chest wall non-tender, lungs clear Breasts: no masses Cardiovascular/Chest: normal rate, regularly irregular Genitourinary/Rectal: normal genital exam, heme negative stool Extremities: normal range of motion Microbiology Date/Time Source Procedure Growth Status 11/29/17 17:05 Urine,Clean Catch Urine Culture - Final NO GROWTH AFTER 48 HOURS Complete Laboratory Tests 12/02/17 06:45: White Blood Count 7.8, Red Blood Count 3.93L, Hemoglobin 12.5, Hematocrit 37.1, Mean Corpuscular Volume 94, Mean Corpuscular Hemoglobin 31.7H, Mean Corpuscular Hemoglobin Concent 33.7, Red Cell Distribution Width 11.2L, Platelet Count 101L , Mean Platelet Volume 7.3, Neutrophils (%) (Auto) 74.8, Lymphocytes (%) (Auto) 11.8L, Monocytes (%) (Auto) 10.1H, Eosinophils (%) (Auto) 2.5, Basophils (%) ( Auto) 0.8, Sodium Level 137, Potassium Level 3.9, Chloride Level 106, Carbon Dioxide Level 23, Anion Gap 8, Blood Urea Nitrogen 13, Creatinine 0.7, Estimat Glomerular Filtration Rate , Glucose Level 128H, Calcium Level 7.9L Current Medications Medications (Trade) Dose Ordered Sig/Ebony Route PRN Reason Start Time Stop Time Status Last Admin Dose Admin Acetaminophen (Tylenol) 650 mg Q4H PRN ORAL T>100.5 11/29/17 17:30 12/29/17 17:29 11/30/17 11:43 Acetaminophen/ Hydrocodone Bitart ([place] 5/325) 1 tab Q6H PRN ORAL Moderate Pain (Pain Scale 4-6) 11/30/17 17:30 12/07/17 17:29 12/02/17 04:19 Al Hydroxide/Mg Hydroxide (Mylanta II) 30 ml Q6H PRN ORAL dyspepsia 11/29/17 17:30 12/29/17 17:29 Atorvastatin Calcium (Lipitor) 20 mg BEDTIME ORAL 11/29/17 21:00 12/29/17 20:59 12/01/17 20:34 Dextrose (Dextrose 50%) 25 ml STAT PRN IV Hypoglycemia 11/29/17 17:45 12/29/17 17:44 Dextrose (Dextrose 50%) 50 ml STAT PRN IV Hypoglycemia 11/29/17 17:30 12/29/17 17:29 Dextrose/Sodium Chloride 1,000 ml @ 50 mls/hr Q20H IV 11/29/17 17:29 12/29/17 17:28 12/02/17 04:20 Heparin Sodium (Porcine) (Heparin 5000 units/ml) 5,000 units EVERY 12 HOURS SUBQ 12/02/17 21:00 01/01/18 20:59 Memantine (Namenda) 5 mg BID ORAL 12/01/17 09:00 12/31/17 08:59 12/01/17 08:57 Morphine Sulfate (Morphine Sulfate) 2 mg Q4H PRN IVP Severe Pain (Pain Scale 7-10) 11/30/17 17:30 12/07/17 17:29 Ondansetron HCl (Zofran) 4 mg Q6H PRN IVP Nausea & Vomiting 11/29/17 17:30 12/29/17 17:29 Polyethylene Glycol (Miralax) 17 gm HSPRN PRN ORAL Constipation 11/29/17 17:30 12/29/17 17:29 Quetiapine Fumarate (SEROquel) 25 mg EVERY 6 HOURS PRN ORAL Agitation 11/30/17 18:45 12/30/17 18:44 12/01/17 10:51 Quetiapine Fumarate (SEROquel) 25 mg QHS ORAL 11/30/17 21:00 12/30/17 20:59 12/01/17 20:34 Tranexamic Acid 500 mg/Sodium Chloride 115 ml @ 230 mls/hr ONCE ONCE IVPB 12/02/17 13:30 12/02/17 13:59 Zolpidem Tartrate (Ambien) 5 mg HSPRN PRN ORAL Insomnia 11/29/17 21:00 12/06/17 20:59 11/29/17 23:04 Jose Garrison MD Dec 02, 2017 13:00
[2017-12-02] MEDS ORDERED: NS IVPB ONE (13:30)
[2017-12-02] MEDS ORDERED: TRANEXAMIC ACID IVPB ONE (13:30)
[2017-12-02] MEDS ORDERED: Bacitracin 50000 Units Vial ONE (13:32)
[2017-12-02] MEDS ORDERED: Propofol 200mg/20ml IV ONE (13:45)
[2017-12-02] MEDS ORDERED: fentaNYL 100 mcg/2 mL IV ONE (13:45)
[2017-12-02] MEDS ORDERED: Midazolam 2mg/2ml Inj ONE (13:45)
[2017-12-02] MEDS ORDERED: Sterile Water Irrig 1000ml IRRIG ONE (13:45)
[2017-12-02] MEDS ORDERED: NS Irrig 1000ml ONE (13:45)
[2017-12-02] MEDS ORDERED: LR 1000ml ONE (13:45)
[2017-12-02] MEDS ORDERED: NS Irrig 2000ml IRRIG ONE (13:45)
--- NOTE | 2017-12-02 13:59 | Pre-Procedure Note/Attestation ---
Pre-Procedure Note/Attestation Complete Prior to Procedure Planned Procedure: left Procedure Narrative: hip hemiarthroplasty Indications for Procedure Pre-Operative Diagnosis: Left hip fracture Attestation I attest that I discussed the nature of the procedure; its benefits; risks and complications; and alternatives (and the risks and benefits of such alternatives ), prior to the procedure, with the patient (or the patient's legal risk control field representative). I attest that, if there was a reasonable possibility of needing a blood transfusion, the patient (or the patient's legal risk control field representative) was given the [facility] standardized written summary, pursuant to the [place] Blood Safety Act ([place] Health and Safety Code # 1645, as amended). I attest that I re-evaluated the patient just prior to the surgery and that there has been no change in the patient's H&P, except as documented below: RIMMA BEARDEN Dec 02, 2017 13:59
--- NOTE | 2017-12-02 14:02 | Brief Operative Note ---
Immediate Post Operative Note Operative Note Pre-op Diagnosis: Left hip fracture Procedure: left hip hemiarthroplasty Post-op Diagnosis: same as pre-op Surgeon: arlet Anesthesiologist: Casper Anesthesia: general Specimen: yes - femoral head Complications: none Condition: stable Fluids: Crystaloids Estimated Blood Loss: volume - 100cc Drains: none Implant(s) used?: Yes - RIMMA Roland Dec 02, 2017 14:01
--- NOTE | 2017-12-02 14:04 | General Progress Note ---
Assessment/Plan Problem List: (1) Dementia ICD Codes: F03.90 - Unspecified dementia without behavioral disturbance SNOMED: 55430821 (2) Fall ICD Codes: W19.XXXA - Unspecified fall, initial encounter SNOMED: 9610572, 504799387 (3) Left displaced femoral neck fracture ICD Codes: S72.002A - Fracture of unspecified part of neck of left femur, initial encounter for closed fracture SNOMED: 0119342, [id number] Status: unchanged Assessment/Plan ot pt diet pain control cbc bmp am pending sx Subjective Constitutional: Reports: weakness Allergies: Coded Allergies: CYCLOBENZAPRINE (Verified Allergy, Unknown, 11/29/17) TRAMADOL (Verified Allergy, Unknown, 11/29/17) All Systems: reviewed and negative except above Subjective sleepy calm pending sx Objective Last 24 Hour Vital Signs Date Time Temp Pulse Resp B/P (MAP) Pulse Ox O2 Delivery O2 Flow Rate FiO2 12/02/17 11:41 97.6 62 20 163/69 97 Room Air 97.6 12/02/17 07:21 98.2 61 20 136/62 97 Room Air 98.2 12/02/17 04:00 97.7 73 17 159/65 97 97.7 12/02/17 00:06 98.1 95 19 130/70 96 98.1 12/01/17 19:56 97.3 91 20 114/77 93 97.3 12/01/17 16:00 98.0 96 20 143/91 96 Room Air 98.0 Intake and Output 12/01/17 12/02/17 19:00 07:00 Intake Total 850 ml 1030 ml Output Total 9999 ml 800 ml Balance -9149 ml 230 ml Intake Oral 480 ml IV Total 550 ml 550 ml Other 300 ml Output Urine Total 9999 ml 800 ml Stool Total 0 ml Laboratory Tests 12/02/17 06:45: White Blood Count 7.8, Red Blood Count 3.93L, Hemoglobin 12.5, Hematocrit 37.1, Mean Corpuscular Volume 94, Mean Corpuscular Hemoglobin 31.7H, Mean Corpuscular Hemoglobin Concent 33.7, Red Cell Distribution Width 11.2L, Platelet Count 101L , Mean Platelet Volume 7.3, Neutrophils (%) (Auto) 74.8, Lymphocytes (%) (Auto) 11.8L, Monocytes (%) (Auto) 10.1H, Eosinophils (%) (Auto) 2.5, Basophils (%) ( Auto) 0.8, Sodium Level 137, Potassium Level 3.9, Chloride Level 106, Carbon Dioxide Level 23, Anion Gap 8, Blood Urea Nitrogen 13, Creatinine 0.7, Estimat Glomerular Filtration Rate , Glucose Level 128H, Calcium Level 7.9L Height (Feet): 5 Height (Inches): 3.00 Weight (Pounds): 165 General Appearance: lethargic EENT: normal ENT inspection Neck: normal alignment Cardiovascular: normal peripheral pulses, normal rate, regular rhythm Respiratory/Chest: chest wall non-tender, lungs clear, normal breath sounds Abdomen: normal bowel sounds, non tender, soft Extremities: normal inspection Edema: no edema noted Arm (L), no edema noted Arm (R), no edema noted Leg (L), no edema noted Leg (R), no edema noted Pedal (L), no edema noted Pedal (R), no edema noted Generalized Neurologic: motor weakness Skin: normal pigmentation, warm/dry ARVIN JOVEL Dec 02, 2017 14:04
[2017-12-02] MEDS ORDERED: LR 1000ml 1,000 ML IVLG SCH (14:32)
[2017-12-02] MEDS ORDERED: Hydromorphone 0.5mg/0.5ml inj IVP PRN (14:45)
[2017-12-02] MEDS ORDERED: DiphenhydrAMINE 50mg/ml Inj IVP PRN (14:45)
[2017-12-02] MEDS ORDERED: Midazolam 2mg/2ml Inj IVP PRN (14:45)
[2017-12-02] MEDS ORDERED: Meperidine 50mg/ml Inj(FOR RIGORS ONLY) IM ONE (14:45)
--- NOTE | 2017-12-02 14:45 | Anethesia Preoperative Eval ---
Anesthesia Pre-op PMH/ROS General Date of Evaluation: Dec 02, 2017 Time of Evaluation: 12:40 Anesthesiologist: Lexus ASA Score: ASA 3 Mallampati Score Class I : Soft palate, uvula, fauces, pillars visible Class II: Soft palate, uvula, fauces visible Class III: Soft palate, base of uvula visible Class IV: Only hard plate visible Mallampati Classification: Class II Surgeon: Irais Diagnosis: Lefthip fracture Surgical Procedure: Left hip hemiarthroplasty Family History: no anesthesia problems Allergies: Coded Allergies: CYCLOBENZAPRINE (Verified Allergy, Unknown, 11/29/17) TRAMADOL (Verified Allergy, Unknown, 11/29/17) Medications: see eMAR Past Medical History Cardiovascular: Denies: HTN, CAD, [place], valve dz, arrhythmia, other Pulmonary: Denies: asthma, COPD, GEN, other Gastrointestinal/Genitourinary: Denies: GERD, CRI, ESRD, other Neurologic/Psychiatric: Reports: dementia - Beto Endocrine: Denies: DM, hypothyroidism, steroids, other HEENT: Denies: cataract (L), cataract (R), glaucoma, [place] (L), [place] (R), other Hematology/Immune: Denies: anemia, DVT, bleeding disorder, other Musculoskeletal/Integumentary: Denies: OA, RA, DJD, DDD, edema, other PMH Narrative: Bhavik PSxH Narrative: Bladder prolapse Anesthesia Pre-op Phys. Exam Physician Exam Last Vital Signs Date Time Temp Pulse Resp B/P (MAP) Pulse Ox O2 Delivery O2 Flow Rate FiO2 12/02/17 11:41 97.6 62 20 163/69 97 Room Air 97.6 Constitutional: NAD Neurologic: CN 2-12 intact, other - Confused Cardiovascular: RRR, no M/R/G Respiratory: CTA Gastrointestinal: S/NT/ND Airway Exam Mallampati Score: Class II MO: full ROM: full Teeth: intact Anesthesia Pre-op A/P Labs Hematology Test 12/02/17 06:45 White Blood Count 7.8 K/UL (4.8-10.8) Red Blood Count 3.93 M/UL (4.20-5.40) L Hemoglobin 12.5 G/DL (12.0-16.0) Hematocrit 37.1 % (37.0-47.0) Mean Corpuscular Volume 94 FL (80-99) Mean Corpuscular Hemoglobin 31.7 PG (27.0-31.0) H Mean Corpuscular Hemoglobin Concent 33.7 G/DL (32.0-36.0) Red Cell Distribution Width 11.2 % (11.6-14.8) L Platelet Count 101 K/UL (150-450) L Mean Platelet Volume 7.3 FL (6.5-10.1) Neutrophils (%) (Auto) 74.8 % (45.0-75.0) Lymphocytes (%) (Auto) 11.8 % (20.0-45.0) L Monocytes (%) (Auto) 10.1 % (1.0-10.0) H Eosinophils (%) (Auto) 2.5 % (0.0-3.0) Basophils (%) (Auto) 0.8 % (0.0-2.0) Chemistry Test 12/02/17 06:45 Sodium Level 137 MMOL/L (136-145) Potassium Level 3.9 MMOL/L (3.5-5.1) Chloride Level 106 MMOL/L (98-107) Carbon Dioxide Level 23 MMOL/L (21-32) Anion Gap 8 mmol/L (5-15) Blood Urea Nitrogen 13 mg/dL (7-18) Creatinine 0.7 MG/DL (0.55-1.30) Estimat Glomerular Filtration Rate mL/min (>60) Glucose Level 128 MG/DL (74-106) H Calcium Level 7.9 MG/DL (8.5-10.1) L Studies Pre-op Studies: EKG - NSR, echo - EF- 50-55% Risk Assessment & Plan Assessment: Elderly confused female for left hip hemiarthroplasty Plan: GA, LMA Status Change Before Surgery: No Pre-Antibiotics Drug: Ancef Given Within 1 Hr of Incision: Yes Time Given: 14:00 Carlos Alberts MD Dec 02, 2017 14:45
--- NOTE | 2017-12-02 14:46 | Immediate Post-Op Evaluation ---
Immediate Post-Op Evalulation Immediate Post-Op Evalulation Procedure: Left hip hemiarthroplasty Date of Evaluation: Dec 02, 2017 Time of Evaluation: 15:55 IV Fluids: 850 Estimated Blood Loss: 100 Blood Pressure Systolic: 131 Blood Pressure Diastolic: 70 Pulse Rate: 88 Respiratory Rate: 16 O2 Sat by Pulse Oximetry: 100 Temperature (Fahrenheit): 99.0 Pain Score (1-10): 0 Nausea: No Vomiting: No Complications No complication Patient Status: reacts, patent, none Hydration Status: adequate Drug: Ancef Given Within 1 Hr of Incision: Yes Time Given: 14:00 Carlos Alberts MD Dec 02, 2017 14:46
[2017-12-02] MEDS ORDERED: Bacitracin Irrig 2000ml IRRIG ONE (14:47)
[2017-12-02] MEDS ORDERED: Meperidine 50mg/ml Inj(FOR RIGORS ONLY) IVP ONE (16:15)
--- NOTE | 2017-12-02 17:30 | Consultation ---
DATE OF CONSULTATION: 12/02/2017 PAIN MANAGEMENT CONSULTATION CONSULTING PHYSICIAN: Fabian Ny M.D. REFERRING PHYSICIAN: Satinder Santoyo D.O. PHYSICIAN TEXTILE MACHINERY SALES REPRESENTATIVE: Yris Wilcox CHIEF COMPLAINT: Left hip pain. HISTORY OF PRESENT ILLNESS: This is an 82-year-old female who is being seen on the medical/surgical floor of [facility] for initial comprehensive pain management consultation. The patient is confused, has been seen by psychiatrist, diagnosed with major depression, rule out of pseudodementia. The patient was admitted under the care of Dr. Santoyo due to left hip pain due to a fall, found to have left hip fracture, seen by orthopedic surgeon, going for left hip hemiarthroplasty scheduled for today and at this time the patient is in no signs of pain and distress, is on morphine 2 mg IV every 4 hours as needed for severe pain, [place] 5/325 one tablet every 6 hours as needed for moderate pain. The patient is comfortable in the bed. No signs of distress or pain, awaiting to go for surgery. PAST MEDICAL HISTORY: Alzheimer's dementia. PAST SURGICAL HISTORY: Bladder flap repair. SOCIAL HISTORY: As per chart, no smoking, no drinking alcohol, no intravenous drug abuse. ALLERGIES: Alprazolam, Flexeril, and tramadol MEDICATIONS: Lipitor, Ambien, heparin, Zofran, MiraLAX, and Tylenol. REVIEW OF SYSTEMS: Unable to obtain due to the patient's mental status. PHYSICAL EXAMINATION: GENERAL: Alert. VITAL SIGNS: Blood pressure 136/62, heart rate 61, oxygen saturation 97%, respirations 20, and temperature is 98.6 degree Fahrenheit. HEENT: PERRLA. NECK: Range of motion is full in all directions. No tenderness to paracervical muscles. No adenopathy. LUNGS: Clear. HEART: Regular. ABDOMEN: Benign. BACK: Range of motion is full in flexion and extension. EXTREMITIES: Upper extremity range of motion is full in all directions. No cyanosis. No clubbing. No edema. Sensory is intact. Reflexes are not obtainable. No adenopathy. Lower extremity range of motion is decreased due to the patient's condition. There is tenderness to palpation of the left hip. No cyanosis. No clubbing. No edema. Sensory is intact. Reflexes are not obtainable. No adenopathy. ASSESSMENT AND PLAN: The patient is an 82-year-old female with left hip pain, left hip fracture status post fall, scheduled for left hip hemiarthroplasty today with Dr. Braxton. The patient was continued on morphine and Hampton as needed. The patient was discussed with Dr. Ny and Dr. Ny concurred. We will follow the patient. Thank you very much for the courtesy of this consultation. Fabian Ny M.D. ADAM Wilcox DR: Yasmine JOB#: [id number] CC:
[2017-12-02] MEDS ORDERED: Norco 5mg/325mg tab ORAL PRN ×2 (18:00)
--- NOTE | 2017-12-02 18:05 | Consultation ---
History of Present Illness General Date patient seen: Dec 01, 2017 Chief Complaint: Multiple Trauma/Fall Referring physician: Dr. Garrison Present Illness HPI 82-year-old female, who has history of anxiety and Alzheimer dementia, who misstepped on 2 steps and fell down landing on her left hip. the pt has been agitated. the pt received seroquel yesterday after i gave the order. the pt is a poor historian however alert and oriented. the pt is forgetful and has impairment of memory. the pts at beside. Allergies: Coded Allergies: CYCLOBENZAPRINE (Verified Allergy, Unknown, 11/29/17) TRAMADOL (Verified Allergy, Unknown, 11/29/17) Medication History Scheduled Aspirin* (Aspir 81*), 81 MG ORAL DAILY, (Reported) Atorvastatin Calcium* (Atorvastatin Calcium*), 20 MG ORAL BEDTIME, (Reported) Cholecalciferol (Vitamin D3)* (Vitamin D*), 4,000 UNITS ORAL DAILY, (Reported) Cyanocobalamin (Vitamin B-12)* (Vitamin B-12*), 1,000 MCG ORAL EVERY OTHER DAY, (Reported) Denosumab (Prolia), 60 MG SUBQ EVERY 6 MONTHS, (Reported) Docusate Sodium* (Docusate Sodium*), 100 MG ORAL DAILY, (Reported) Lutein/Zeaxanthin (Ocuvite Lutein 25-5 Mg Softgel), 1 EACH PO DAILY, (Reported) Trazodone Hcl* (Desyrel*), 25 MG ORAL ONCE, (Reported) Miscellaneous Medications Calcium Carbonate/Vitamin D3 (Calcium 500 + Vit D Caplet), 2 EACH PO, (Reported) Patient History Limited by: medical condition History Provided By: Patient, Significant Other, Medical Record, PMD Healthcare decision maker MARGE ORTEGA Resuscitation status Full Code Advanced Directive on File Past Medical/Surgical History Past Medical/Surgical History: (1) Dementia (2) Fall (3) Delirium (4) Left displaced femoral neck fracture Review of Systems Psychiatric: Reports: prior hx, anxiety, depressed feelings Physical Exam General Appearance: no apparent distress, alert, agitated Last 24 Hour Vital Signs Date Time Temp Pulse Resp B/P (MAP) Pulse Ox O2 Delivery O2 Flow Rate FiO2 12/02/17 17:15 98.9 97 21 139/97 97 98.9 12/02/17 16:55 98.8 86 15 144/66 100 Nasal Cannula 3.0 98.8 12/02/17 16:40 64 19 153/65 100 Nasal Cannula 3.0 12/02/17 16:24 99.0 12/02/17 16:24 93 15 157/81 100 Nasal Cannula 3.0 12/02/17 16:15 66 15 156/67 100 Simple Mask 6.0 12/02/17 16:05 77 14 149/70 100 Simple Mask 6.0 12/02/17 15:55 88 14 142/70 100 Simple Mask 6.0 12/02/17 15:51 210.2 88 16 100 12/02/17 15:50 97 25 137/69 100 Simple Mask 6.0 12/02/17 15:45 99.0 96 17 131/70 100 Simple Mask 6.0 99.0 12/02/17 11:41 97.6 62 20 163/69 97 Room Air 97.6 12/02/17 07:21 98.2 61 20 136/62 97 Room Air 98.2 12/02/17 04:00 97.7 73 17 159/65 97 97.7 12/02/17 00:06 98.1 95 19 130/70 96 98.1 12/01/17 19:56 97.3 91 20 114/77 93 97.3 Intake and Output 12/01/17 12/02/17 19:00 07:00 Intake Total 850 ml 1030 ml Output Total 9999 ml 800 ml Balance -9149 ml 230 ml Intake Oral 480 ml IV Total 550 ml 550 ml Other 300 ml Output Urine Total 9999 ml 800 ml Stool Total 0 ml Laboratory Tests Test 12/02/17 06:45 White Blood Count 7.8 K/UL (4.8-10.8) Red Blood Count 3.93 M/UL (4.20-5.40) L Hemoglobin 12.5 G/DL (12.0-16.0) Hematocrit 37.1 % (37.0-47.0) Mean Corpuscular Volume 94 FL (80-99) Mean Corpuscular Hemoglobin 31.7 PG (27.0-31.0) H Mean Corpuscular Hemoglobin Concent 33.7 G/DL (32.0-36.0) Red Cell Distribution Width 11.2 % (11.6-14.8) L Platelet Count 101 K/UL (150-450) L Mean Platelet Volume 7.3 FL (6.5-10.1) Neutrophils (%) (Auto) 74.8 % (45.0-75.0) Lymphocytes (%) (Auto) 11.8 % (20.0-45.0) L Monocytes (%) (Auto) 10.1 % (1.0-10.0) H Eosinophils (%) (Auto) 2.5 % (0.0-3.0) Basophils (%) (Auto) 0.8 % (0.0-2.0) Sodium Level 137 MMOL/L (136-145) Potassium Level 3.9 MMOL/L (3.5-5.1) Chloride Level 106 MMOL/L (98-107) Carbon Dioxide Level 23 MMOL/L (21-32) Anion Gap 8 mmol/L (5-15) Blood Urea Nitrogen 13 mg/dL (7-18) Creatinine 0.7 MG/DL (0.55-1.30) Estimat Glomerular Filtration Rate mL/min (>60) Glucose Level 128 MG/DL (74-106) H Calcium Level 7.9 MG/DL (8.5-10.1) L Height (Feet): 5 Height (Inches): 3.00 Weight (Pounds): 165 Medications Current Medications Medications (Trade) Dose Ordered Sig/Ebony Route PRN Reason Start Time Stop Time Status Last Admin Dose Admin Acetaminophen (Tylenol) 650 mg Q4H PRN ORAL temp>100 12/02/17 18:00 01/01/18 17:59 Acetaminophen/ Hydrocodone Bitart ([place] 5/325) 1 tab Q4H PRN ORAL Moderate Pain (Pain Scale 4-6) 12/02/17 18:00 12/09/17 17:59 Acetaminophen/ Hydrocodone Bitart ([place] 5/325) 1 tab Q6H PRN ORAL Mild Pain (Pain Scale 1-3) 12/02/17 18:00 12/09/17 17:59 Al Hydroxide/Mg Hydroxide (Mylanta II) 30 ml Q6H PRN ORAL dyspepsia 11/29/17 17:30 12/29/17 17:29 Atorvastatin Calcium (Lipitor) 20 mg BEDTIME ORAL 11/29/17 21:00 12/29/17 20:59 12/01/17 20:34 Cefazolin Sodium 2 gm/Dextrose 110 ml @ 220 mls/hr EVERY 8 HOURS IV 12/02/17 22:00 12/03/17 06:29 Dextrose (Dextrose 50%) 25 ml STAT PRN IV Hypoglycemia 11/29/17 17:45 12/29/17 17:44 Dextrose (Dextrose 50%) 50 ml STAT PRN IV Hypoglycemia 11/29/17 17:30 12/29/17 17:29 Dextrose/ Electrolytes 1,000 ml @ 75 mls/hr [id number] IV 12/02/17 18:30 01/01/18 18:29 Enoxaparin Sodium (Lovenox) 40 mg DAILY SUBQ 12/03/17 09:00 12/13/17 08:59 Hydromorphone HCl (Dilaudid) 2 mg Q4H PRN SUBQ Severe Pain (Pain Scale 7-10) 12/02/17 18:00 12/09/17 17:59 Memantine (Namenda) 5 mg BID ORAL 12/01/17 09:00 12/31/17 08:59 12/01/17 08:57 Ondansetron HCl (Zofran) 4 mg Q6H PRN IVP Nausea & Vomiting 12/02/17 18:00 01/01/18 17:59 Polyethylene Glycol (Miralax) 17 gm HSPRN PRN ORAL Constipation 11/29/17 17:30 12/29/17 17:29 Prochlorperazine (Compazine) 10 mg Q6H PRN IVP Nausea & Vomiting 12/02/17 14:00 01/01/18 13:59 Prochlorperazine (Compazine) 25 mg Q12H PRN RECTAL Nausea & Vomiting 12/02/17 14:00 01/01/18 13:59 Quetiapine Fumarate (SEROquel) 25 mg EVERY 6 HOURS PRN ORAL Agitation 11/30/17 18:45 12/30/17 18:44 12/01/17 10:51 Quetiapine Fumarate (SEROquel) 25 mg QHS ORAL 11/30/17 21:00 12/30/17 20:59 12/01/17 20:34 Zolpidem Tartrate (Ambien) 5 mg HSPRN PRN ORAL Insomnia 11/29/17 21:00 12/06/17 20:59 11/29/17 23:04 Assessment/Plan Assessment/Plan dementia with behavioral disturbance agitation -Seroquel 25mg qhs -Seroquel 25mg q 6hr prn -raise head to prevent aspiration -cont Klonopin -per family the pt is allergic to Jovani Holm M.D. Dec 02, 2017 18:05
[2017-12-02] MEDS ORDERED: D5 1/2NS 1000ml IV ONE (18:10)
--- NOTE | 2017-12-02 18:10 | General Progress Note ---
Assessment/Plan Assessment/Plan dementia with behavioral dist encephalopathy -seroquel prn and standing -dc sitter -educated the nurse to use meds Subjective Date patient seen: Dec 02, 2017 Neurologic/Psychiatric: Reports: anxiety, depressed, emotional problems Allergies: Coded Allergies: CYCLOBENZAPRINE (Verified Allergy, Unknown, 11/29/17) TRAMADOL (Verified Allergy, Unknown, 11/29/17) Subjective the pt was agitated earlier however calm was next to bed. the pt was scheduled to go for hip surgery. discuss with nurse to dc sitter. Objective Last 24 Hour Vital Signs Date Time Temp Pulse Resp B/P (MAP) Pulse Ox O2 Delivery O2 Flow Rate FiO2 12/02/17 17:15 98.9 97 21 139/97 97 98.9 12/02/17 16:55 98.8 86 15 144/66 100 Nasal Cannula 3.0 98.8 12/02/17 16:40 64 19 153/65 100 Nasal Cannula 3.0 12/02/17 16:24 99.0 12/02/17 16:24 93 15 157/81 100 Nasal Cannula 3.0 12/02/17 16:15 66 15 156/67 100 Simple Mask 6.0 12/02/17 16:05 77 14 149/70 100 Simple Mask 6.0 12/02/17 15:55 88 14 142/70 100 Simple Mask 6.0 12/02/17 15:51 210.2 88 16 100 12/02/17 15:50 97 25 137/69 100 Simple Mask 6.0 12/02/17 15:45 99.0 96 17 131/70 100 Simple Mask 6.0 99.0 12/02/17 11:41 97.6 62 20 163/69 97 Room Air 97.6 12/02/17 07:21 98.2 61 20 136/62 97 Room Air 98.2 12/02/17 04:00 97.7 73 17 159/65 97 97.7 12/02/17 00:06 98.1 95 19 130/70 96 98.1 12/01/17 19:56 97.3 91 20 114/77 93 97.3 Intake and Output 12/01/17 12/02/17 19:00 07:00 Intake Total 850 ml 1030 ml Output Total 9999 ml 800 ml Balance -9149 ml 230 ml Intake Oral 480 ml IV Total 550 ml 550 ml Other 300 ml Output Urine Total 9999 ml 800 ml Stool Total 0 ml Laboratory Tests 12/02/17 06:45: White Blood Count 7.8, Red Blood Count 3.93L, Hemoglobin 12.5, Hematocrit 37.1, Mean Corpuscular Volume 94, Mean Corpuscular Hemoglobin 31.7H, Mean Corpuscular Hemoglobin Concent 33.7, Red Cell Distribution Width 11.2L, Platelet Count 101L , Mean Platelet Volume 7.3, Neutrophils (%) (Auto) 74.8, Lymphocytes (%) (Auto) 11.8L, Monocytes (%) (Auto) 10.1H, Eosinophils (%) (Auto) 2.5, Basophils (%) ( Auto) 0.8, Sodium Level 137, Potassium Level 3.9, Chloride Level 106, Carbon Dioxide Level 23, Anion Gap 8, Blood Urea Nitrogen 13, Creatinine 0.7, Estimat Glomerular Filtration Rate , Glucose Level 128H, Calcium Level 7.9L Height (Feet): 5 Height (Inches): 3.00 Weight (Pounds): 165 General Appearance: no apparent distress, alert Neurologic: oriented x 3, responsive, normal mood/affect Jovani Coles M.D. Dec 02, 2017 18:10
[2017-12-02] MEDS: D5 1/2NS w/KCl 20mEq 1,000 ML IV SCH (18:56)
[2017-12-02] MEDS: Atorvastatin 20mg tab ORAL SCH (20:22)
--- NOTE | 2017-12-02 20:45 | Operative Note - Dictated ---
DATE OF OPERATION: 12/02/2017 PREOPERATIVE DIAGNOSIS: Left hip subcapital femoral neck fracture with displacement. POSTOPERATIVE DIAGNOSIS: Left hip subcapital femoral neck fracture with displacement. PROCEDURE: Left hip hemiarthroplasty using Quiana system size 7 Accolade stem with high-offset neck with a 125-degree angle neck with -4 femoral head size and 45 mm bipolar component pressfit. SURGEON: Sukh Braxton M.D. MANAGER FOOD BEVERAGE: None. ANESTHESIOLOGIST: Dr. Alberts. ANESTHESIA: General LMA anesthesia. ESTIMATED BLOOD LOSS: Less than 100 mL. COMPLICATIONS: None. BRIEF HISTORY: The patient is a pleasant 82-year-old female who has dementia who sustained a fall and broke her left hip. She was admitted to [facility] and preop clearance was obtained. After full discussion of risks and benefits of surgery with the patient's as well as her two sons, she opted for surgical treatment as described above. Risks of infection, bleeding, neurovascular complication, possible intraoperative fracture, possibility of leg-length discrepancy, dislocation, inability to walk, and use of wheelchair and walker down the line were discussed and the patient and the family understood. OPERATIVE PROCEDURE: The patient was brought up to the operating table and was placed supine. General anesthesia was induced and the patient was placed in right lateral decubitus position with axial roll in place and left hip up. The patient was stabilized using pegboard. All pressure points were well padded. The left leg was prepped and draped in usual sterile fashion. Time-out was performed and IV antibiotics were given and 0.5 g tranexamic acid was given. Standard posterolateral approach to the left hip was undertaken. The incision was taken through subcutaneous tissue and IT band was opened. The Charnley retractor was placed in and the short external rotators were released. The piriformis was released and capsule was T'd and was tagged for later repair. The fracture was visualized, the femoral neck fracture with subcapital. Therefore, an extra 1 cm of the neck was cut. The head was then removed using threaded Steinmann pin. Once this was completed, the acetabulum was visualized and was inspected and there were no loose fragments. The acetabulum was thoroughly irrigated using copious amount of fluid. At this point, care was given to the femur. The leg was internally rotated. Mckeon retractor was placed in. Using lateralizing primer boxer, the entry point into the femur was lateralized. A canal finder was placed in and sequential broaching was performed from zero all the way up to size 7. Size 7 provided excellent axial and rotational stability. Anatomical anteversion of the femur was recreated. Once this was completed, sizing was performed initially with a zero-length neck and subsequently with a -4. The -4 provided excellent leg length and excellent stability. The range of motion was checked and appeared to be perfect. The stability was checked at 0, 30 degrees, 45 degrees, and 90 degrees of flexion with neutral adduction and the leg could be internally rotated up to about 75 to 80 degrees. Anterior stability was checked and appeared to be perfect. At this point, wounds were thoroughly irrigated and trial components were removed. Accolade size 7 stem was then placed in without any complication. The neck and Gant taper were dried and a -4 head with a 45-mm bipolar component were then assembled and were locked in without complication. The entire construct was reduced and the leg lengths, range of motion, stability were checked and rechecked, and appeared to be perfect again. At this point, the capsule was closed using drill hole through the greater trochanter. The tensor fascia was closed using #1 interrupted Vicryl suture. Subcutaneous tissue was closed using 2-0 Vicryl suture. Skin was closed using 3-0 Monocryl suture and Dermabond. Steri-Strips were applied for additional fixation. Sterile dressing was applied and the patient was placed in abduction pillow, and was taken to recovery room in stable condition. All lap counts and instrument counts were correct. Sukh Braxton M.D. DR: Bk JOB#: [id number] CC:
[2017-12-02] MEDS ORDERED: Heparin 5000 units/ml inj SUBQ SCH (21:00)
[2017-12-02] MEDS: Zolpidem 5mg tab ORAL PRN (22:00)
[2017-12-02] MEDS: ceFAZolin sod 2 GM in D5W 110 ML IV SCH (22:00)
--- NOTE | 2017-12-02 22:00 | Progress Note ---
DATE: 12/02/2017 SUBJECTIVE: This is an 82-year-old female patient with left hip fracture, seen today. Confused, disorganized. Mood labile. Worsened by stress of her mental illness. Because of her altered mental status and agitation, the attending physician has requested daily psychiatric consultation. MENTAL STATUS EXAMINATION: The patient is an 82-year-old female with psychomotor agitation. Mood is irritable and agitated. Affect guarded and restricted. Thought process is disorganized and illogical. The patient denies suicidal or homicidal ideations. Insight and judgment is poor. DIAGNOSIS: Paranoid schizophrenia with acute exacerbation. PLAN: Treat her with Seroquel mg at bedtime. Provide 18 to 20 minutes of supportive therapy. . Chart reviewed and discussed with staff. 18 to 20 minutes of supportive therapy provided. Nancy Durham M.D. DR: LOLI JOB#: [id number] CC:
--- NOTE | 2017-12-02 22:30 | Consultation ---
DATE OF CONSULTATION: 12/01/2017 PSYCHOTHERAPY CONSULTATION PROGRESS NOTE CONSULTING PHYSICIAN: Lamar Pollock M.D. TREATING ATTENDING PHYSICIAN: Satinder Santoyo D.O. SUBJECTIVE: This is an 82-year-old female patient from [place], [place]. The patient lives at home. She tripped and fell on her left hip, came to the emergency room with left hip fracture. The patient has been confused and disorganized, helpless. For these reasons she was referred for psychotherapeutic services. This clinician assessed this patient. The patient is very confused, she does not know why she was brought to the hospital, does not know in which hospital she is in, disorganized, altered in mental status. Denies auditory or visual hallucinations. There is indication of suicidal or homicidal thoughts of ideation at this time. The patient is very confused and disorganized. PAST MEDICAL HISTORY: History of severe Alzheimer's dementia. ALLERGIES: The patient is allergic to tramadol, cyclobenzaprine, and alprazolam. SUBSTANCE ABUSE HISTORY: There is no indication of alcohol use, illicit substance use, . PSYCHIATRIC HISTORY: The patient has history of depression. SOCIAL HISTORY: The patient is an 82-year-old female who lives in [facility], financially sustained through [employer]. MENTAL STATUS EXAMINATION: The patient is alert and oriented to person and place. Mood is dysphoric. Affect is blunted. Thought process is disorganized. The patient has poor attention and concentration. This clinician assessed the patient and assessed the patient's mental status. Provided the patient with reality orientation. Provided the patient with supportive psychotherapy. Encouraged the patient to participate in treatment milieu. DIAGNOSES: Major depressive disorder, recurrent, moderate, with psychotic features. PLAN: This clinician has reviewed the patient's chart and discussed the treatment with treatment team. Lamar Pollock PsyD. : Nilesh JOB#: [id number] CC:
[2017-12-03] MEDS: Norco 5mg/325mg tab ORAL PRN ×2 (03:32→20:32)
[2017-12-03 04:05] VITALS: BP 149/70
--- NOTE | 2017-12-03 05:00 | Consultation ---
DATE OF CONSULTATION: 12/03/2017 HISTORY OF PRESENT ILLNESS: The patient is an 82-year-old female patient, who was admitted to the hospital at [facility]. This patient was admitted to the hospital primarily because she has a left hip fracture, but in addition to that, the patient states that although she does have a left hip fracture, this patient also has altered mental status, confusion, and mood lability worsened by stress from medical illness as far. Attending has requested daily psychiatric consultation. She does have some mood lability and agitation on interview. MENTAL STATUS EXAMINATION: This is an 82-year-old female with psychomotor agitation. Mood is irritable and agitated. Affect, guarded and restricted. Intellect poor. Mood, depressed and anxious. Motor activity, psychomotor agitation. Attention span is poor. Orientation x2. Speech is pressured. Thought process, disorganized and illogical. Thought content, auditory hallucinations and paranoid delusions. Insight and judgment is poor. DIAGNOSIS: Bipolar 2. PLAN: Continue treating this patient with Seroquel at a dose of 25 mg at bedtime. Provide 18 to 20 medications of supportive therapy and encourage her to interact appropriately with staff. Chart reviewed and discussed with staff. Seen and assessed in the room. Nancy Durham M.D. DR: TK JOB#: [id number] CC:
[2017-12-03] MEDS: ceFAZolin sod 2 GM in D5W 110 ML IV SCH (05:11)
[2017-12-03] MEDS: D5 1/2NS w/KCl 20mEq 1,000 ML IV SCH ×2 (06:22→20:33)
[2017-12-03 06:59] LABS: BASOPHILS % (AUTO) 0.7 % (0.0-2.0); EOSINOPHILS % (AUTO) 1.9 % (0.0-3.0); HEMATOCRIT 34.1 % (37.0-47.0); HEMOGLOBIN 12.3 G/DL (12.0-16.0); LYMPHOCYTES % (AUTO) 7.5 % (20.0-45.0); MEAN CORPUSCULAR VOLUME 93 FL (80-99); PLATELET COUNT 132 K/UL (150-450); RED BLOOD COUNT 3.68 M/UL (4.20-5.40); RED CELL DISTRIBUTION WIDTH 10.9 % (11.6-14.8); WHITE BLOOD COUNT 7.9 K/UL (4.8-10.8)
[2017-12-03 07:22] LABS: ALANINE AMINOTRANSFERASE 57 U/L (12-78); ALBUMIN 2.7 G/DL (3.4-5.0); ALBUMIN/GLOBULIN RATIO 0.8 (1.0-2.7); ALKALINE PHOSPHATASE 81 U/L (46-116); ANION GAP 9 mmol/L (5-15); ASPARTATE AMINO TRANSFERASE 47 U/L (15-37); BILIRUBIN,TOTAL 1.2 MG/DL (0.2-1.0); BLOOD UREA NITROGEN 12 mg/dL (7-18); CALCIUM 7.4 MG/DL (8.5-10.1); CARBON DIOXIDE 23 MMOL/L (21-32); CHLORIDE 102 MMOL/L (98-107); CREATININE 0.7 MG/DL (0.55-1.30); PHOSPHORUS 1.8 MG/DL (2.5-4.9); SODIUM 134 MMOL/L (136-145)
[2017-12-03 07:24] LABS: BILIRUBIN,DIRECT 0.2 MG/DL (0.0-0.3)
[2017-12-03 08:09] VITALS: BP 130/64
--- NOTE | 2017-12-03 08:48 | 48 Hour Post Anesthesia Eval ---
Post Anesthesia Evaluation Procedure: Left hip hemiarthroplasty Date of Evaluation: Dec 03, 2017 Time of Evaluation: 11:10 Blood Pressure Systolic: 130 0: 64 Pulse Rate: 94 Respiratory Rate: 20 Temperature (Fahrenheit): 97.8 O2 Sat by Pulse Oximetry: 99 Airway: patent Nausea: No Vomiting: No Pain Intensity: 2 Hydration Status: adequate Cardiopulmonary Status: Stable Mental Status/LOC: patient returned to baseline Follow-up Care/Observations: As per surgery Post-Anesthesia Complications: No anesthetic complication Follow-up care needed: N/A Carlos Alberst MD Dec 03, 2017 08:48
--- NOTE | 2017-12-03 08:54 | General Progress Note ---
Assessment/Plan Assessment/Plan (1) Left hip pain (2) Left hip fracture (3) S/p fall (4) S/p Left hip hemiarthroplasty Pt to be continued on Dilaudid 1mg SubQ Q4H PRN severe pain and [place] 5/325mg PO 1 tab Q4H PRN moderate pain. D/w Dr. Ny and he concurred. Subjective Date patient seen: Dec 03, 2017 Time patient seen: 07:15 - am ROS Limited/Unobtainable: Yes Allergies: Coded Allergies: CYCLOBENZAPRINE (Verified Allergy, Unknown, 11/29/17) TRAMADOL (Verified Allergy, Unknown, 11/29/17) Subjective Patient is in bed s/p surgery. She c/o pain in left hip with movement. Objective Last 24 Hour Vital Signs Date Time Temp Pulse Resp B/P (MAP) Pulse Ox O2 Delivery O2 Flow Rate FiO2 12/03/17 08:48 208.0 94 20 99 12/03/17 08:09 97.8 94 20 130/64 99 Room Air 97.8 12/03/17 04:14 Room Air 12/03/17 04:05 97.7 95 19 149/70 96 97.7 12/02/17 20:01 97.9 104 18 154/87 97 97.9 12/02/17 18:19 97.7 76 20 141/73 95 97.7 12/02/17 17:15 98.9 97 21 139/97 97 98.9 12/02/17 16:55 98.8 86 15 144/66 100 Nasal Cannula 3.0 98.8 12/02/17 16:40 64 19 153/65 100 Nasal Cannula 3.0 12/02/17 16:24 99.0 12/02/17 16:24 93 15 157/81 100 Nasal Cannula 3.0 12/02/17 16:15 66 15 156/67 100 Simple Mask 6.0 12/02/17 16:05 77 14 149/70 100 Simple Mask 6.0 12/02/17 15:55 88 14 142/70 100 Simple Mask 6.0 12/02/17 15:51 210.2 88 16 100 12/02/17 15:50 97 25 137/69 100 Simple Mask 6.0 12/02/17 15:45 99.0 96 17 131/70 100 Simple Mask 6.0 99.0 12/02/17 11:41 97.6 62 20 163/69 97 Room Air 97.6 Intake and Output 12/02/17 12/03/17 19:00 07:00 Intake Total 1445 ml 1025 ml Output Total 1175 ml 450 ml Balance 270 ml 575 ml Intake Oral 120 ml 240 ml IV Total 1325 ml 785 ml Output Urine Total 1075 ml 450 ml Estimated Blood Loss 100 ml # Voids 1 # Bowel Movements 2 Laboratory Tests 12/03/17 05:50: White Blood Count 7.9, Red Blood Count 3.68L, Hemoglobin 12.3, Hematocrit 34.1L , Mean Corpuscular Volume 93, Mean Corpuscular Hemoglobin 33.4H, Mean Corpuscular Hemoglobin Concent 36.0, Red Cell Distribution Width 10.9L, Platelet Count 132L, Mean Platelet Volume 6.7, Neutrophils (%) (Auto) 78.0H, Lymphocytes (%) (Auto) 7.5L, Monocytes (%) (Auto) 12.0H, Eosinophils (%) (Auto) 1.9, Basophils (%) (Auto) 0.7, Sodium Level 134L, Potassium Level 4.0, Chloride Level 102, Carbon Dioxide Level 23, Anion Gap 9, Blood Urea Nitrogen 12, Creatinine 0.7, Estimat Glomerular Filtration Rate , Glucose Level 168H, Calcium Level 7.4L, Phosphorus Level 1.8L, Magnesium Level 1.6L, Total Bilirubin 1.2H, Direct Bilirubin 0.2, Aspartate Amino Transf (AST/SGOT) 47H, Alanine Aminotransferase (ALT/SGPT) 57, Alkaline Phosphatase 81, Total Protein 6.1L, Albumin 2.7L, Globulin 3.4, Albumin/Globulin Ratio 0.8L Height (Feet): 5 Height (Inches): 3.00 Weight (Pounds): 165 Objective GENERAL: Alert. HEENT: PERRLA. NECK: Range of motion is full in all directions. No tenderness to paracervical muscles. No adenopathy. LUNGS: Clear. HEART: Regular. ABDOMEN: Benign. BACK: Range of motion is full in flexion and extension. EXTREMITIES: Lower extremity range of motion is decreased due to the patient's condition. There is tenderness to palpation of the left hip with bandages applied. RODOLFO SALDAÑA N. P.A. Dec 03, 2017 08:54
[2017-12-03] MEDS: Enoxaparin 40mg Inj SUBQ SCH (10:30)
--- NOTE | 2017-12-03 11:20 | Diagnostic Imaging Report ---
Indication: Pain, postoperative Technique: One view of the pelvis Comparison: 11/29/2017 Findings: Interim left hip hemiarthroplasty. Good anatomic alignment of the prosthesis. Gas within the overlying soft tissues from the surgical exposure is noted Impression: Postoperative left hip. No unusual features
[2017-12-03 11:57] VITALS: BP 122/63
--- NOTE | 2017-12-03 12:33 | Orthopedic Progress Note ---
Orthopedic - Progress Note Subjective Symptoms: c/o post-op hip pain Objective Vital Signs Laboratory Tests Test 12/03/17 05:50 White Blood Count 7.9 K/UL (4.8-10.8) Red Blood Count 3.68 M/UL (4.20-5.40) L Hemoglobin 12.3 G/DL (12.0-16.0) Hematocrit 34.1 % (37.0-47.0) L Mean Corpuscular Volume 93 FL (80-99) Mean Corpuscular Hemoglobin 33.4 PG (27.0-31.0) H Mean Corpuscular Hemoglobin Concent 36.0 G/DL (32.0-36.0) Red Cell Distribution Width 10.9 % (11.6-14.8) L Platelet Count 132 K/UL (150-450) L Mean Platelet Volume 6.7 FL (6.5-10.1) Neutrophils (%) (Auto) 78.0 % (45.0-75.0) H Lymphocytes (%) (Auto) 7.5 % (20.0-45.0) L Monocytes (%) (Auto) 12.0 % (1.0-10.0) H Eosinophils (%) (Auto) 1.9 % (0.0-3.0) Basophils (%) (Auto) 0.7 % (0.0-2.0) Sodium Level 134 MMOL/L (136-145) L Potassium Level 4.0 MMOL/L (3.5-5.1) Chloride Level 102 MMOL/L (98-107) Carbon Dioxide Level 23 MMOL/L (21-32) Anion Gap 9 mmol/L (5-15) Blood Urea Nitrogen 12 mg/dL (7-18) Creatinine 0.7 MG/DL (0.55-1.30) Estimat Glomerular Filtration Rate mL/min (>60) Glucose Level 168 MG/DL (74-106) H Calcium Level 7.4 MG/DL (8.5-10.1) L Phosphorus Level 1.8 MG/DL (2.5-4.9) L Magnesium Level 1.6 MG/DL (1.8-2.4) L Total Bilirubin 1.2 MG/DL (0.2-1.0) H Direct Bilirubin 0.2 MG/DL (0.0-0.3) Aspartate Amino Transf (AST/SGOT) 47 U/L (15-37) H Alanine Aminotransferase (ALT/SGPT) 57 U/L (12-78) Alkaline Phosphatase 81 U/L (46-116) Total Protein 6.1 G/DL (6.4-8.2) L Albumin 2.7 G/DL (3.4-5.0) L Globulin 3.4 g/dL Albumin/Globulin Ratio 0.8 (1.0-2.7) L Last 24 Hour Vital Signs Date Time Temp Pulse Resp B/P (MAP) Pulse Ox O2 Delivery O2 Flow Rate FiO2 12/03/17 11:57 98.2 90 20 122/63 95 Room Air 98.2 12/03/17 08:48 208.0 94 20 99 12/03/17 08:09 97.8 94 20 130/64 99 Room Air 97.8 12/03/17 08:00 Room Air 12/03/17 04:14 Room Air 12/03/17 04:05 97.7 95 19 149/70 96 97.7 12/02/17 20:01 97.9 104 18 154/87 97 97.9 12/02/17 18:19 97.7 76 20 141/73 95 97.7 12/02/17 17:15 98.9 97 21 139/97 97 98.9 12/02/17 16:55 98.8 86 15 144/66 100 Nasal Cannula 3.0 98.8 12/02/17 16:40 64 19 153/65 100 Nasal Cannula 3.0 12/02/17 16:24 99.0 12/02/17 16:24 93 15 157/81 100 Nasal Cannula 3.0 12/02/17 16:15 66 15 156/67 100 Simple Mask 6.0 12/02/17 16:05 77 14 149/70 100 Simple Mask 6.0 12/02/17 15:55 88 14 142/70 100 Simple Mask 6.0 12/02/17 15:51 210.2 88 16 100 12/02/17 15:50 97 25 137/69 100 Simple Mask 6.0 12/02/17 15:45 99.0 96 17 131/70 100 Simple Mask 6.0 99.0 I&O Intake and Output 12/02/17 12/03/17 19:00 07:00 Intake Total 1445 ml 1025 ml Output Total 1175 ml 450 ml Balance 270 ml 575 ml Intake Oral 120 ml 240 ml IV Total 1325 ml 785 ml Output Urine Total 1075 ml 450 ml Estimated Blood Loss 100 ml # Voids 1 # Bowel Movements 2 Wound: clean, dry, intact Drains: none Neuro Status: normal Vascular Status: normal Additional Comments xray reviewed Assessment Post-op Diagnosis POD 1 Procedure Performed Left hip chilo Plan Plan: PT, pain management, discharge plan - f/u dr. nice as outpt in 2 weeks TONY HALLMAN Dec 03, 2017 12:33
--- NOTE | 2017-12-03 15:17 | Pulmonology Progress Note ---
Assessment/Plan Problems: (1) Left displaced femoral neck fracture (2) Dementia (3) Delirium Assessment/Plan better tolerated surgery very well symptomatic treatment pain control dvt prophylaxis psych evaluation Subjective ROS Limited/Unobtainable: No Constitutional: Reports: no symptoms HEENT: Repors: no symptoms Respiratory: Reports: wheezing Cardiovascular: Reports: no symptoms Allergies: Coded Allergies: CYCLOBENZAPRINE (Verified Allergy, Unknown, 11/29/17) TRAMADOL (Verified Allergy, Unknown, 11/29/17) Objective Last 24 Hour Vital Signs Date Time Temp Pulse Resp B/P (MAP) Pulse Ox O2 Delivery O2 Flow Rate FiO2 12/03/17 11:57 98.2 90 20 122/63 95 Room Air 98.2 12/03/17 08:48 208.0 94 20 99 12/03/17 08:09 97.8 94 20 130/64 99 Room Air 97.8 12/03/17 08:00 Room Air 12/03/17 04:14 Room Air 12/03/17 04:05 97.7 95 19 149/70 96 97.7 12/02/17 20:01 97.9 104 18 154/87 97 97.9 12/02/17 18:19 97.7 76 20 141/73 95 97.7 12/02/17 17:15 98.9 97 21 139/97 97 98.9 12/02/17 16:55 98.8 86 15 144/66 100 Nasal Cannula 3.0 98.8 12/02/17 16:40 64 19 153/65 100 Nasal Cannula 3.0 12/02/17 16:24 99.0 12/02/17 16:24 93 15 157/81 100 Nasal Cannula 3.0 12/02/17 16:15 66 15 156/67 100 Simple Mask 6.0 12/02/17 16:05 77 14 149/70 100 Simple Mask 6.0 12/02/17 15:55 88 14 142/70 100 Simple Mask 6.0 12/02/17 15:51 210.2 88 16 100 12/02/17 15:50 97 25 137/69 100 Simple Mask 6.0 12/02/17 15:45 99.0 96 17 131/70 100 Simple Mask 6.0 99.0 Intake and Output 12/02/17 12/03/17 19:00 07:00 Intake Total 1445 ml 1025 ml Output Total 1175 ml 450 ml Balance 270 ml 575 ml Intake Oral 120 ml 240 ml IV Total 1325 ml 785 ml Output Urine Total 1075 ml 450 ml Estimated Blood Loss 100 ml # Voids 1 # Bowel Movements 2 Objective General Appearance: WD/WN Lines, tubes and drains: peripheral HEENT: normocephalic, atraumatic Neck: non-tender, normal alignment Respiratory/Chest: chest wall non-tender, lungs clear Breasts: no masses Cardiovascular/Chest: normal rate, regularly irregular Genitourinary/Rectal: normal genital exam, heme negative stool Extremities: normal range of motion Laboratory Tests 12/03/17 05:50: White Blood Count 7.9, Red Blood Count 3.68L, Hemoglobin 12.3, Hematocrit 34.1L , Mean Corpuscular Volume 93, Mean Corpuscular Hemoglobin 33.4H, Mean Corpuscular Hemoglobin Concent 36.0, Red Cell Distribution Width 10.9L, Platelet Count 132L, Mean Platelet Volume 6.7, Neutrophils (%) (Auto) 78.0H, Lymphocytes (%) (Auto) 7.5L, Monocytes (%) (Auto) 12.0H, Eosinophils (%) (Auto) 1.9, Basophils (%) (Auto) 0.7, Sodium Level 134L, Potassium Level 4.0, Chloride Level 102, Carbon Dioxide Level 23, Anion Gap 9, Blood Urea Nitrogen 12, Creatinine 0.7, Estimat Glomerular Filtration Rate , Glucose Level 168H, Calcium Level 7.4L, Phosphorus Level 1.8L, Magnesium Level 1.6L, Total Bilirubin 1.2H, Direct Bilirubin 0.2, Aspartate Amino Transf (AST/SGOT) 47H, Alanine Aminotransferase (ALT/SGPT) 57, Alkaline Phosphatase 81, Total Protein 6.1L, Albumin 2.7L, Globulin 3.4, Albumin/Globulin Ratio 0.8L Current Medications Medications (Trade) Dose Ordered Sig/Ebony Route PRN Reason Start Time Stop Time Status Last Admin Dose Admin Acetaminophen (Tylenol) 650 mg Q4H PRN ORAL temp>100 12/02/17 18:00 01/01/18 17:59 Acetaminophen/ Hydrocodone Bitart ([place] 5/325) 1 tab Q4H PRN ORAL Moderate Pain (Pain Scale 4-6) 12/02/17 18:00 12/09/17 17:59 12/03/17 03:32 Al Hydroxide/Mg Hydroxide (Mylanta II) 30 ml Q6H PRN ORAL dyspepsia 11/29/17 17:30 12/29/17 17:29 Atorvastatin Calcium (Lipitor) 20 mg BEDTIME ORAL 11/29/17 21:00 12/29/17 20:59 12/02/17 20:22 Dextrose (Dextrose 50%) 25 ml STAT PRN IV Hypoglycemia 11/29/17 17:45 12/29/17 17:44 Dextrose (Dextrose 50%) 50 ml STAT PRN IV Hypoglycemia 11/29/17 17:30 12/29/17 17:29 Dextrose/ Electrolytes 1,000 ml @ 75 mls/hr [id number] IV 12/02/17 18:30 01/01/18 18:29 12/03/17 06:22 Enoxaparin Sodium (Lovenox) 40 mg DAILY SUBQ 12/03/17 09:00 12/13/17 08:59 12/03/17 10:30 Hydromorphone HCl (Dilaudid) 1 mg Q4H PRN SUBQ Severe Pain (Pain Scale 7-10) 12/03/17 10:00 12/09/17 17:59 Ondansetron HCl (Zofran) 4 mg Q6H PRN IVP Nausea & Vomiting 12/02/17 18:00 01/01/18 17:59 Polyethylene Glycol (Miralax) 17 gm HSPRN PRN ORAL Constipation 11/29/17 17:30 12/29/17 17:29 Prochlorperazine (Compazine) 10 mg Q6H PRN IVP Nausea & Vomiting 12/02/17 14:00 01/01/18 13:59 Prochlorperazine (Compazine) 25 mg Q12H PRN RECTAL Nausea & Vomiting 12/02/17 14:00 01/01/18 13:59 Quetiapine Fumarate (SEROquel) 25 mg EVERY 6 HOURS PRN ORAL Agitation 11/30/17 18:45 12/30/17 18:44 12/03/17 05:11 Quetiapine Fumarate (SEROquel) 25 mg QHS ORAL 11/30/17 21:00 12/30/17 20:59 12/01/17 20:34 Zolpidem Tartrate (Ambien) 5 mg HSPRN PRN ORAL Insomnia 11/29/17 21:00 12/06/17 20:59 12/02/17 22:00 Jose Garrison MD Dec 03, 2017 15:17
[2017-12-03] MEDS ORDERED: Tubing IV Secondary IV ONE (15:20)
--- NOTE | 2017-12-03 15:27 | General Progress Note ---
Assessment/Plan Problem List: (1) Dementia ICD Codes: F03.90 - Unspecified dementia without behavioral disturbance SNOMED: 67194776 (2) Fall ICD Codes: W19.XXXA - Unspecified fall, initial encounter SNOMED: 2129728, 895059148 (3) Left displaced femoral neck fracture ICD Codes: S72.002A - Fracture of unspecified part of neck of left femur, initial encounter for closed fracture SNOMED: 1059337, 780522975 Status: stable, progressing, tolerating diet Assessment/Plan ot pt diet pain control cbc bmp am brobelinda acostau eval Subjective Constitutional: Reports: weakness Allergies: Coded Allergies: CYCLOBENZAPRINE (Verified Allergy, Unknown, 11/29/17) TRAMADOL (Verified Allergy, Unknown, 11/29/17) All Systems: reviewed and negative except above Subjective sleepy calm s/p sx Objective Last 24 Hour Vital Signs Date Time Temp Pulse Resp B/P (MAP) Pulse Ox O2 Delivery O2 Flow Rate FiO2 12/03/17 11:57 98.2 90 20 122/63 95 Room Air 98.2 12/03/17 08:48 208.0 94 20 99 12/03/17 08:09 97.8 94 20 130/64 99 Room Air 97.8 12/03/17 08:00 Room Air 12/03/17 04:14 Room Air 12/03/17 04:05 97.7 95 19 149/70 96 97.7 12/02/17 20:01 97.9 104 18 154/87 97 97.9 12/02/17 18:19 97.7 76 20 141/73 95 97.7 12/02/17 17:15 98.9 97 21 139/97 97 98.9 12/02/17 16:55 98.8 86 15 144/66 100 Nasal Cannula 3.0 98.8 12/02/17 16:40 64 19 153/65 100 Nasal Cannula 3.0 12/02/17 16:24 99.0 12/02/17 16:24 93 15 157/81 100 Nasal Cannula 3.0 12/02/17 16:15 66 15 156/67 100 Simple Mask 6.0 12/02/17 16:05 77 14 149/70 100 Simple Mask 6.0 12/02/17 15:55 88 14 142/70 100 Simple Mask 6.0 12/02/17 15:51 210.2 88 16 100 12/02/17 15:50 97 25 137/69 100 Simple Mask 6.0 12/02/17 15:45 99.0 96 17 131/70 100 Simple Mask 6.0 99.0 Intake and Output 12/02/17 12/03/17 19:00 07:00 Intake Total 1445 ml 1025 ml Output Total 1175 ml 450 ml Balance 270 ml 575 ml Intake Oral 120 ml 240 ml IV Total 1325 ml 785 ml Output Urine Total 1075 ml 450 ml Estimated Blood Loss 100 ml # Voids 1 # Bowel Movements 2 Laboratory Tests 12/03/17 05:50: White Blood Count 7.9, Red Blood Count 3.68L, Hemoglobin 12.3, Hematocrit 34.1L , Mean Corpuscular Volume 93, Mean Corpuscular Hemoglobin 33.4H, Mean Corpuscular Hemoglobin Concent 36.0, Red Cell Distribution Width 10.9L, Platelet Count 132L, Mean Platelet Volume 6.7, Neutrophils (%) (Auto) 78.0H, Lymphocytes (%) (Auto) 7.5L, Monocytes (%) (Auto) 12.0H, Eosinophils (%) (Auto) 1.9, Basophils (%) (Auto) 0.7, Sodium Level 134L, Potassium Level 4.0, Chloride Level 102, Carbon Dioxide Level 23, Anion Gap 9, Blood Urea Nitrogen 12, Creatinine 0.7, Estimat Glomerular Filtration Rate , Glucose Level 168H, Calcium Level 7.4L, Phosphorus Level 1.8L, Magnesium Level 1.6L, Total Bilirubin 1.2H, Direct Bilirubin 0.2, Aspartate Amino Transf (AST/SGOT) 47H, Alanine Aminotransferase (ALT/SGPT) 57, Alkaline Phosphatase 81, Total Protein 6.1L, Albumin 2.7L, Globulin 3.4, Albumin/Globulin Ratio 0.8L Height (Feet): 5 Height (Inches): 3.00 Weight (Pounds): 165 General Appearance: lethargic EENT: normal ENT inspection Neck: normal alignment Cardiovascular: normal peripheral pulses, normal rate, regular rhythm Respiratory/Chest: chest wall non-tender, lungs clear, normal breath sounds Abdomen: normal bowel sounds, non tender, soft Extremities: normal inspection Edema: no edema noted Arm (L), no edema noted Arm (R), no edema noted Leg (L), no edema noted Leg (R), no edema noted Pedal (L), no edema noted Pedal (R), no edema noted Generalized Neurologic: motor weakness Skin: normal pigmentation, warm/dry ARVIN JOVEL Dec 03, 2017 15:27
[2017-12-03 15:30] VITALS: BP 132/78
--- NOTE | 2017-12-03 18:53 | General Progress Note ---
Assessment/Plan Status: stable, progressing Assessment/Plan dementia with behavioral dist encephalopathy -seroquel prn and standing -dc sitter -educated the nurse to use meds Subjective Date patient seen: Dec 03, 2017 Neurologic/Psychiatric: Reports: anxiety, depressed, emotional problems Allergies: Coded Allergies: CYCLOBENZAPRINE (Verified Allergy, Unknown, 11/29/17) TRAMADOL (Verified Allergy, Unknown, 11/29/17) Subjective the pt was calmer today. the pts two sons were in room. the pt was calm sxs manageable. still requires seroquel Objective Last 24 Hour Vital Signs Date Time Temp Pulse Resp B/P (MAP) Pulse Ox O2 Delivery O2 Flow Rate FiO2 12/03/17 15:30 97.9 90 20 132/78 96 Room Air 97.9 12/03/17 11:57 98.2 90 20 122/63 95 Room Air 98.2 12/03/17 08:48 208.0 94 20 99 12/03/17 08:09 97.8 94 20 130/64 99 Room Air 97.8 12/03/17 08:00 Room Air 12/03/17 04:14 Room Air 12/03/17 04:05 97.7 95 19 149/70 96 97.7 12/02/17 20:01 97.9 104 18 154/87 97 97.9 Intake and Output 12/02/17 12/03/17 19:00 07:00 Intake Total 1445 ml 1025 ml Output Total 1175 ml 450 ml Balance 270 ml 575 ml Intake Oral 120 ml 240 ml IV Total 1325 ml 785 ml Output Urine Total 1075 ml 450 ml Estimated Blood Loss 100 ml # Voids 1 # Bowel Movements 2 Laboratory Tests 12/03/17 05:50: White Blood Count 7.9, Red Blood Count 3.68L, Hemoglobin 12.3, Hematocrit 34.1L , Mean Corpuscular Volume 93, Mean Corpuscular Hemoglobin 33.4H, Mean Corpuscular Hemoglobin Concent 36.0, Red Cell Distribution Width 10.9L, Platelet Count 132L, Mean Platelet Volume 6.7, Neutrophils (%) (Auto) 78.0H, Lymphocytes (%) (Auto) 7.5L, Monocytes (%) (Auto) 12.0H, Eosinophils (%) (Auto) 1.9, Basophils (%) (Auto) 0.7, Sodium Level 134L, Potassium Level 4.0, Chloride Level 102, Carbon Dioxide Level 23, Anion Gap 9, Blood Urea Nitrogen 12, Creatinine 0.7, Estimat Glomerular Filtration Rate , Glucose Level 168H, Calcium Level 7.4L, Phosphorus Level 1.8L, Magnesium Level 1.6L, Total Bilirubin 1.2H, Direct Bilirubin 0.2, Aspartate Amino Transf (AST/SGOT) 47H, Alanine Aminotransferase (ALT/SGPT) 57, Alkaline Phosphatase 81, Total Protein 6.1L, Albumin 2.7L, Globulin 3.4, Albumin/Globulin Ratio 0.8L Height (Feet): 5 Height (Inches): 3.00 Weight (Pounds): 165 General Appearance: no apparent distress, alert, confused Jovani Coles M.D. Dec 03, 2017 18:53
[2017-12-03 20:00] VITALS: BP 146/68
[2017-12-03] MEDS: Atorvastatin 20mg tab ORAL SCH (20:31)
[2017-12-04] MEDS: Norco 5mg/325mg tab ORAL PRN (06:26)
[2017-12-04] MEDS: D5 1/2NS w/KCl 20mEq 1,000 ML IV SCH (06:27)
[2017-12-04 08:00] VITALS: BP 130/67
--- NOTE | 2017-12-04 08:45 | General Progress Note ---
Assessment/Plan Assessment/Plan (1) Left hip pain (2) Left hip fracture (3) S/p fall (4) S/p Left hip hemiarthroplasty Pt to be continued on Dilaudid and [place]. D/w Dr. Ny and he concurred. Subjective Date patient seen: Dec 04, 2017 Time patient seen: 07:15 - am ROS Limited/Unobtainable: Yes Allergies: Coded Allergies: CYCLOBENZAPRINE (Verified Allergy, Unknown, 11/29/17) TRAMADOL (Verified Allergy, Unknown, 11/29/17) Subjective Patient in bed family at bed side. She shows no signs of pain or distress at this time. Objective Last 24 Hour Vital Signs Date Time Temp Pulse Resp B/P (MAP) Pulse Ox O2 Delivery O2 Flow Rate FiO2 12/04/17 08:00 98.0 82 18 130/67 97 Room Air 98.0 12/03/17 20:00 100.2 95 19 146/68 4 Room Air 100.2 12/03/17 15:30 97.9 90 20 132/78 96 Room Air 97.9 12/03/17 11:57 98.2 90 20 122/63 95 Room Air 98.2 12/03/17 08:48 208.0 94 20 99 Intake and Output 12/03/17 12/04/17 19:00 07:00 Intake Total 1417.5 ml 810 ml Output Total 450 ml 300 ml Balance 967.5 ml 510 ml Intake Oral 280 ml 60 ml IV Total 1137.5 ml 750 ml Output Urine Total 450 ml 300 ml # Voids 1 Laboratory Tests 12/04/17 07:25: White Blood Count [Pending], Red Blood Count [Pending], Hemoglobin [Pending], Hematocrit [Pending], Mean Corpuscular Volume [Pending], Mean Corpuscular Hemoglobin [Pending], Mean Corpuscular Hemoglobin Concent [Pending], Red Cell Distribution Width [Pending], Platelet Count [Pending], Mean Platelet Volume [ Pending], Neutrophils (%) (Auto) [Pending], Lymphocytes (%) (Auto) [Pending], Monocytes (%) (Auto) [Pending], Eosinophils (%) (Auto) [Pending], Basophils (%) (Auto) [Pending], Sodium Level [Pending], Potassium Level [Pending], Chloride Level [Pending], Carbon Dioxide Level [Pending], Blood Urea Nitrogen [Pending], Creatinine [Pending], Estimat Glomerular Filtration Rate [Pending], Glucose Level [Pending], Calcium Level [Pending] Height (Feet): 5 Height (Inches): 3.00 Weight (Pounds): 165 Objective GENERAL: Alert. HEENT: PERRLA. NECK: Range of motion is full in all directions. No tenderness to paracervical muscles. No adenopathy. LUNGS: Clear. HEART: Regular. ABDOMEN: Benign. BACK: Range of motion is full in flexion and extension. EXTREMITIES: Lower extremity range of motion is decreased due to the patient's condition. There is tenderness to palpation of the left hip with bandages applied. RODOLFO SALDAÑA Dec 04, 2017 08:45
[2017-12-04 08:48] LABS: BASOPHILS % (AUTO) 0.4 % (0.0-2.0); HEMATOCRIT 31.5 % (37.0-47.0); HEMOGLOBIN 11.1 G/DL (12.0-16.0); LYMPHOCYTES % (AUTO) 7.4 % (20.0-45.0); MEAN CORPUSCULAR VOLUME 93 FL (80-99); MONOCYTES % (AUTO) 10.9 % (1.0-10.0); NEUTROPHILS % (AUTO) 80.2 % (45.0-75.0); PLATELET COUNT 140 K/UL (150-450); RED BLOOD COUNT 3.39 M/UL (4.20-5.40); RED CELL DISTRIBUTION WIDTH 10.9 % (11.6-14.8); WHITE BLOOD COUNT 9.6 K/UL (4.8-10.8)
[2017-12-04] MEDS: Enoxaparin 40mg Inj SUBQ SCH (09:00)
[2017-12-04 09:04] LABS: ANION GAP 7 mmol/L (5-15); BLOOD UREA NITROGEN 19 mg/dL (7-18); CALCIUM 7.2 MG/DL (8.5-10.1); CARBON DIOXIDE 23 MMOL/L (21-32); CHLORIDE 102 MMOL/L (98-107); CREATININE 0.8 MG/DL (0.55-1.30); POTASSIUM 4.1 MMOL/L (3.5-5.1); SODIUM 132 MMOL/L (136-145)
[2017-12-04 12:00] VITALS: BP 110/74
--- NOTE | 2017-12-04 13:05 | Pulmonology Progress Note ---
Assessment/Plan Problems: (1) Left displaced femoral neck fracture (2) Dementia (3) Delirium Assessment/Plan better tolerated surgery very well symptomatic treatment pain control dvt prophylaxis psych evaluation dc planning Subjective ROS Limited/Unobtainable: No Constitutional: Reports: no symptoms HEENT: Repors: no symptoms Respiratory: Reports: no symptoms Cardiovascular: Reports: no symptoms Allergies: Coded Allergies: CYCLOBENZAPRINE (Verified Allergy, Unknown, 11/29/17) TRAMADOL (Verified Allergy, Unknown, 11/29/17) Objective Last 24 Hour Vital Signs Date Time Temp Pulse Resp B/P (MAP) Pulse Ox O2 Delivery O2 Flow Rate FiO2 12/04/17 12:00 98.5 87 18 110/74 96 Room Air 98.5 12/04/17 08:00 98.0 82 18 130/67 97 Room Air 98.0 12/03/17 20:00 100.2 95 19 146/68 4 Room Air 100.2 12/03/17 15:30 97.9 90 20 132/78 96 Room Air 97.9 Intake and Output 12/03/17 12/04/17 19:00 07:00 Intake Total 1417.5 ml 810 ml Output Total 450 ml 300 ml Balance 967.5 ml 510 ml Intake Oral 280 ml 60 ml IV Total 1137.5 ml 750 ml Output Urine Total 450 ml 300 ml # Voids 1 Objective General Appearance: WD/WN Lines, tubes and drains: peripheral HEENT: normocephalic, atraumatic Neck: non-tender, normal alignment Respiratory/Chest: chest wall non-tender, lungs clear Breasts: no masses Cardiovascular/Chest: normal rate, regularly irregular Genitourinary/Rectal: normal genital exam, heme negative stool Extremities: normal range of motion Laboratory Tests 12/04/17 07:25: White Blood Count 9.6, Red Blood Count 3.39L, Hemoglobin 11.1L, Hematocrit 31.5L , Mean Corpuscular Volume 93, Mean Corpuscular Hemoglobin 32.9H, Mean Corpuscular Hemoglobin Concent 35.3, Red Cell Distribution Width 10.9L, Platelet Count 140L, Mean Platelet Volume 6.2L, Neutrophils (%) (Auto) 80.2H, Lymphocytes (%) (Auto) 7.4L, Monocytes (%) (Auto) 10.9H, Eosinophils (%) (Auto) 1.0, Basophils (%) (Auto) 0.4, Sodium Level 132L, Potassium Level 4.1, Chloride Level 102, Carbon Dioxide Level 23, Anion Gap 7, Blood Urea Nitrogen 19H, Creatinine 0.8, Estimat Glomerular Filtration Rate , Glucose Level 150H, Calcium Level 7.2L Current Medications Medications (Trade) Dose Ordered Sig/Ebony Route PRN Reason Start Time Stop Time Status Last Admin Dose Admin Acetaminophen (Tylenol) 650 mg Q4H PRN ORAL temp>100 12/02/17 18:00 01/01/18 17:59 Acetaminophen/ Hydrocodone Bitart ([place] 5/325) 1 tab Q4H PRN ORAL Moderate Pain (Pain Scale 4-6) 12/02/17 18:00 12/09/17 17:59 12/04/17 06:26 Al Hydroxide/Mg Hydroxide (Mylanta II) 30 ml Q6H PRN ORAL dyspepsia 11/29/17 17:30 12/29/17 17:29 Atorvastatin Calcium (Lipitor) 20 mg BEDTIME ORAL 11/29/17 21:00 12/29/17 20:59 12/03/17 20:31 Dextrose (Dextrose 50%) 25 ml STAT PRN IV Hypoglycemia 11/29/17 17:45 12/29/17 17:44 Dextrose (Dextrose 50%) 50 ml STAT PRN IV Hypoglycemia 11/29/17 17:30 12/29/17 17:29 Dextrose/ Electrolytes 1,000 ml @ 75 mls/hr [id number] IV 12/02/17 18:30 01/01/18 18:29 12/04/17 06:27 Enoxaparin Sodium (Lovenox) 40 mg DAILY SUBQ 12/03/17 09:00 12/13/17 08:59 12/03/17 10:30 Hydromorphone HCl (Dilaudid) 1 mg Q4H PRN SUBQ Severe Pain (Pain Scale 7-10) 12/03/17 10:00 12/09/17 17:59 Ondansetron HCl (Zofran) 4 mg Q6H PRN IVP Nausea & Vomiting 12/02/17 18:00 01/01/18 17:59 Polyethylene Glycol (Miralax) 17 gm HSPRN PRN ORAL Constipation 11/29/17 17:30 12/29/17 17:29 Prochlorperazine (Compazine) 10 mg Q6H PRN IVP Nausea & Vomiting 12/02/17 14:00 01/01/18 13:59 Prochlorperazine (Compazine) 25 mg Q12H PRN RECTAL Nausea & Vomiting 12/02/17 14:00 01/01/18 13:59 Quetiapine Fumarate (SEROquel) 25 mg EVERY 6 HOURS PRN ORAL Agitation 11/30/17 18:45 12/30/17 18:44 12/04/17 12:16 Quetiapine Fumarate (SEROquel) 25 mg QHS ORAL 11/30/17 21:00 12/30/17 20:59 12/03/17 20:31 Zolpidem Tartrate (Ambien) 5 mg HSPRN PRN ORAL Insomnia 11/29/17 21:00 12/06/17 20:59 12/02/17 22:00 Jose Garrison MD Dec 04, 2017 13:05
--- NOTE | 2017-12-04 13:56 | General Progress Note ---
Assessment/Plan Problem List: (1) Dementia ICD Codes: F03.90 - Unspecified dementia without behavioral disturbance SNOMED: 77422903 (2) Fall ICD Codes: W19.XXXA - Unspecified fall, initial encounter SNOMED: 4086944, 047000770 (3) Left displaced femoral neck fracture ICD Codes: S72.002A - Fracture of unspecified part of neck of left femur, initial encounter for closed fracture SNOMED: 9623145, [id number] Status: stable, progressing, tolerating diet Assessment/Plan ot pt diet pain control dc to yum[facility] jaimes Subjective Constitutional: Reports: weakness Allergies: Coded Allergies: CYCLOBENZAPRINE (Verified Allergy, Unknown, 11/29/17) TRAMADOL (Verified Allergy, Unknown, 11/29/17) All Systems: reviewed and negative except above Subjective sleepy calm s/p sx Objective Last 24 Hour Vital Signs Date Time Temp Pulse Resp B/P (MAP) Pulse Ox O2 Delivery O2 Flow Rate FiO2 12/04/17 12:00 98.5 87 18 110/74 96 Room Air 98.5 12/04/17 08:00 98.0 82 18 130/67 97 Room Air 98.0 12/03/17 20:00 100.2 95 19 146/68 4 Room Air 100.2 12/03/17 15:30 97.9 90 20 132/78 96 Room Air 97.9 Intake and Output 12/03/17 12/04/17 19:00 07:00 Intake Total 1417.5 ml 810 ml Output Total 450 ml 300 ml Balance 967.5 ml 510 ml Intake Oral 280 ml 60 ml IV Total 1137.5 ml 750 ml Output Urine Total 450 ml 300 ml # Voids 1 Laboratory Tests 12/04/17 07:25: White Blood Count 9.6, Red Blood Count 3.39L, Hemoglobin 11.1L, Hematocrit 31.5L , Mean Corpuscular Volume 93, Mean Corpuscular Hemoglobin 32.9H, Mean Corpuscular Hemoglobin Concent 35.3, Red Cell Distribution Width 10.9L, Platelet Count 140L, Mean Platelet Volume 6.2L, Neutrophils (%) (Auto) 80.2H, Lymphocytes (%) (Auto) 7.4L, Monocytes (%) (Auto) 10.9H, Eosinophils (%) (Auto) 1.0, Basophils (%) (Auto) 0.4, Sodium Level 132L, Potassium Level 4.1, Chloride Level 102, Carbon Dioxide Level 23, Anion Gap 7, Blood Urea Nitrogen 19H, Creatinine 0.8, Estimat Glomerular Filtration Rate , Glucose Level 150H, Calcium Level 7.2L Height (Feet): 5 Height (Inches): 3.00 Weight (Pounds): 165 General Appearance: lethargic, confused EENT: normal ENT inspection Neck: normal alignment Cardiovascular: normal peripheral pulses, normal rate, regular rhythm Respiratory/Chest: chest wall non-tender, lungs clear, normal breath sounds Abdomen: normal bowel sounds, non tender, soft Extremities: normal inspection Edema: no edema noted Arm (L), no edema noted Arm (R), no edema noted Leg (L), no edema noted Leg (R), no edema noted Pedal (L), no edema noted Pedal (R), no edema noted Generalized Neurologic: motor weakness Skin: normal pigmentation, warm/dry ARVIN JOVEL Dec 04, 2017 13:56
[2017-12-04] MEDS ORDERED: D5 1/2NS 1000ml IV ONE (14:31)
--- NOTE | 2017-12-04 15:24 | General Progress Note ---
Assessment/Plan Status: stable Assessment/Plan dementia with behavioral dist encephalopathy -seroquel prn and standing -dc sitter -educated the nurse to use meds -d/w who agreed to Seroquel Subjective Date patient seen: Dec 04, 2017 Neurologic/Psychiatric: Reports: anxiety, depressed, emotional problems Allergies: Coded Allergies: CYCLOBENZAPRINE (Verified Allergy, Unknown, 11/29/17) TRAMADOL (Verified Allergy, Unknown, 11/29/17) Subjective the pt was calm no behavioral issues, the pt does not require a sitter gave consent to Seroquel. The case was discussed with charge nurse. the pt confused at baseline Objective Last 24 Hour Vital Signs Date Time Temp Pulse Resp B/P (MAP) Pulse Ox O2 Delivery O2 Flow Rate FiO2 12/04/17 12:00 98.5 87 18 110/74 96 Room Air 98.5 12/04/17 08:00 98.0 82 18 130/67 97 Room Air 98.0 12/03/17 20:00 100.2 95 19 146/68 4 Room Air 100.2 12/03/17 15:30 97.9 90 20 132/78 96 Room Air 97.9 Intake and Output 12/03/17 12/04/17 19:00 07:00 Intake Total 1417.5 ml 810 ml Output Total 450 ml 300 ml Balance 967.5 ml 510 ml Intake Oral 280 ml 60 ml IV Total 1137.5 ml 750 ml Output Urine Total 450 ml 300 ml # Voids 1 Laboratory Tests 12/04/17 07:25: White Blood Count 9.6, Red Blood Count 3.39L, Hemoglobin 11.1L, Hematocrit 31.5L , Mean Corpuscular Volume 93, Mean Corpuscular Hemoglobin 32.9H, Mean Corpuscular Hemoglobin Concent 35.3, Red Cell Distribution Width 10.9L, Platelet Count 140L, Mean Platelet Volume 6.2L, Neutrophils (%) (Auto) 80.2H, Lymphocytes (%) (Auto) 7.4L, Monocytes (%) (Auto) 10.9H, Eosinophils (%) (Auto) 1.0, Basophils (%) (Auto) 0.4, Sodium Level 132L, Potassium Level 4.1, Chloride Level 102, Carbon Dioxide Level 23, Anion Gap 7, Blood Urea Nitrogen 19H, Creatinine 0.8, Estimat Glomerular Filtration Rate , Glucose Level 150H, Calcium Level 7.2L Height (Feet): 5 Height (Inches): 3.00 Weight (Pounds): 165 General Appearance: no apparent distress, alert, confused Neurologic: depressed affect Jovani Coles M.D. Dec 04, 2017 15:24
[2017-12-04 16:00] VITALS: BP 119/70
--- NOTE | 2017-12-04 17:00 | Progress Note ---
DATE: 12/04/2017 SUBJECTIVE: This is an 82-year-old female patient with left hip fracture. This patient continues to have mood lability worsened by stress of her medical illness. ____ far, her attending has requested daily psychiatric consultation. She still has some mood lability, confusion, and altered mental status. MENTAL STATUS EXAMINATION: The patient is an 82-year-old female with psychomotor retardation. Mood is depressed. Affect guarded and restricted. Intellect poor. Mood depressed and anxious. Motor activity, psychomotor agitation. Attention span is poor. Orientation x2. Speech is low volume and slurred. Thought process, disorganized and illogical. Thought content, auditory hallucinations and paranoid delusions. Insight and judgment is poor. DIAGNOSIS: Depression with psychotic features, rule out pseudodementia. PLAN: Plan for this patient is to treat her with a medication regimen of Seroquel 25 mg at bedtime, provide 18 to 20 minutes of supportive therapy, and encourage her to interact appropriately with staff. Chart reviewed. Discussed with staff. Seen and assessed at bedside. Nancy Durham M.D. DR: LOLI JOB#: [id number] CC:
[2017-12-04] MEDS: Atorvastatin 20mg tab ORAL SCH (20:47)
[2017-12-04 20:51] VITALS: BP 137/73
[2017-12-04] MEDS: Zolpidem 5mg tab ORAL PRN (22:17)
[2017-12-05 00:01] VITALS: BP 133/70
[2017-12-05 04:00] VITALS: BP 145/63
--- NOTE | 2017-12-05 06:30 | Progress Note ---
DATE: 12/05/2017 SUBJECTIVE: This is an 82-year-old female patient. She is in the hospital because of left hip fracture, but she has altered mental status and confusion. Cognition has declined below baseline secondary to stress of her medical illness, that is why, her attending physician has requested daily psychiatric consultation. The patient was seen and assessed in her room. Today, still has some confusion and disorganized thought process. MENTAL STATUS EXAMINATION: This is an 82-year-old female. Appearance is disheveled. Attitude, irritable and agitated. Affect, guarded and restricted. Intellect poor. Mood depressed and anxious. Motor activity, psychomotor agitation. Attention span is poor. Orientation x2. Speech is pressured. Thought process, disorganized and illogical. Denies any current suicidal or homicidal thoughts. Insight and judgment is poor. DIAGNOSIS: Major depression with psychotic features. PLAN: Treated with Seroquel 25 mg q. 6 hours p.r.n. anxiety or agitation. She will continue to be followed by Psychiatry throughout hospital course. This morning, 18 to 20 minutes of supportive therapy provided. Chart reviewed. Discussed with staff. Seen and assessed at bedside. Nancy Durham M.D. DR: NATALY JOB#: [id number] CC:
[2017-12-05] MEDS ORDERED: LIPITOR20 MG ORAL (06:44)
[2017-12-05] MEDS ORDERED: TYLENOL325 MG ORAL (06:45)
[2017-12-05] MEDS ORDERED: LOVENOX40 MG/0.4 SUBQ (06:46)
[2017-12-05] MEDS ORDERED: NORCO 5-325 TA1 EACH ORAL (06:46)
[2017-12-05] MEDS ORDERED: SEROQUEL50 MG ORAL ×2 (06:48)
[2017-12-05] MEDS ORDERED: AMBIEN5 M1 PO (06:49)
[2017-12-05] MEDS ORDERED: MIRALAX17 G2 ORAL (06:51)
[2017-12-05] MEDS ORDERED: COMPAZINE25 MG RECTAL (06:51)
[2017-12-05] MEDS ORDERED: MYLANTA II30 ML ORAL (06:53)
[2017-12-05 08:00] VITALS: BP 148/79
[2017-12-05] MEDS: Enoxaparin 40mg Inj SUBQ SCH (08:38)
--- NOTE | 2017-12-05 12:42 | Pulmonology Progress Note ---
Assessment/Plan Problems: (1) Left displaced femoral neck fracture (2) Dementia (3) Delirium Assessment/Plan symptomatic treatment pain control dvt prophylaxis psych evaluation appreciated dc planning to acute rehab Subjective ROS Limited/Unobtainable: No Interval Events: doing better, Allergies: Coded Allergies: CYCLOBENZAPRINE (Verified Allergy, Unknown, 11/29/17) TRAMADOL (Verified Allergy, Unknown, 11/29/17) Objective Last 24 Hour Vital Signs Date Time Temp Pulse Resp B/P (MAP) Pulse Ox O2 Delivery O2 Flow Rate FiO2 12/05/17 08:00 99.9 114 20 148/79 99 99.9 12/05/17 04:00 98.1 99 19 145/63 97 Room Air 98.1 12/05/17 00:01 99.4 108 18 133/70 96 Room Air 99.4 12/04/17 20:51 99.7 114 20 137/73 96 99.7 12/04/17 17:30 99.1 99.1 12/04/17 16:00 100.1 90 20 119/70 97 Room Air 100.1 Intake and Output 12/04/17 12/05/17 19:00 07:00 Intake Total 575 ml 150 ml Output Total 0 ml Balance 575 ml 150 ml Intake Oral 200 ml 150 ml IV Total 75 ml Other 300 ml Stool Total 0 ml # Voids 4 2 Objective General Appearance: WD/WN Lines, tubes and drains: peripheral HEENT: normocephalic, atraumatic Neck: non-tender, normal alignment Respiratory/Chest: chest wall non-tender, lungs clear Breasts: no masses Cardiovascular/Chest: normal rate, regularly irregular Genitourinary/Rectal: normal genital exam, heme negative stool Extremities: normal range of motion Jose Garrison MD Dec 05, 2017 12:42
--- NOTE | 2017-12-05 23:01 | General Progress Note ---
Assessment/Plan Assessment/Plan dementia with behavioral dist encephalopathy -seroquel prn and standing -dc sitter -educated the nurse to use meds -d/w who agreed to Seroquel Subjective Date patient seen: Dec 05, 2017 Allergies: Coded Allergies: CYCLOBENZAPRINE (Verified Allergy, Unknown, 11/29/17) TRAMADOL (Verified Allergy, Unknown, 11/29/17) Subjective the pt was calm the pt confused at baseline Objective Last 24 Hour Vital Signs Date Time Temp Pulse Resp B/P (MAP) Pulse Ox O2 Delivery O2 Flow Rate FiO2 12/05/17 08:00 99.9 114 20 148/79 99 99.9 12/05/17 04:00 98.1 99 19 145/63 97 Room Air 98.1 12/05/17 00:01 99.4 108 18 133/70 96 Room Air 99.4 Intake and Output 12/04/17 12/05/17 19:00 07:00 Intake Total 575 ml 150 ml Output Total 0 ml Balance 575 ml 150 ml Intake Oral 200 ml 150 ml IV Total 75 ml Other 300 ml Stool Total 0 ml # Voids 4 2 Height (Feet): 5 Height (Inches): 3.00 Weight (Pounds): 165 Jovani Coles M.D. Dec 05, 2017 23:01
--- NOTE | 2017-12-06 10:45 | Discharge Summary ---
Discharge Summary Discharge Summary Discharge Summary DATE OF ADMISSION: 11/29/2017 DATE OF DISCHARGE: 12/05/2017 CONSULTANTS: Dr. Jose Ny BRIEF HOSPITAL COURSE: Patient is an 82-year-old female who presented to ED via EMS after increased left hip pain after a fall. Patient reportedly fell onto her left side. She had been normally ambulatory without any assistance. She denied loss of consciousness and complained of increased pain to the left hip and was unable to ambulate. She has past medical history significant for Alzheimer's dementia. On evaluation at ED, CT of the left hip showed left femural fracture. EKG was in normal sinus rhythm with no ST to T wave changes. There was no leukocytosis , hemoglobin and hematocrit were stable. She was admitted for management of left hip fracture. She was given pain management. Left elbow x-ray did not show any fractures or acute injury. Head CT did not show any acute intracranial bleed, mass effect, or edema. Chest x-ray was negative. Echocardiogram showed ejection fraction of 55-60%. On 12/02/2017 she underwent left hip hemiarthroplasty. She was followed by psychiatrist as she had episodes of agitation. She was given Seroquel and Klonopin. She was given PT and OT. She was eventually discharged to acute rehabilitation. . FINAL DIAGNOSES: Acute femoral neck fracture with displacement status post fall Status post left hip hemiarthroplasty Dementia with behavioral disturbance Encephalopathy Agitation DISPOSITION: Patient was transferred to [facility] CT rehabilitation DISCHARGE MEDICATIONS: Refer to Discharge Medication List. DISCHARGE INSTRUCTIONS: Follow up with orthopedics in 2 weeks I have been assigned to dictate discharge summary on this account, and I was not involved in the patient's management. Yanna Whitfield NP Dec 06, 2017 10:45
== END 2017-12-05 09:30 | disposition short-term general hospital (02) | DRG 469 ==
LOC: EDBD 15:29 → EMR 15:54 → 3E 16:10 → EDBEDREQ 16:24 → 3E 18:50
PROC: 0SRS0JZ Replacement of Left Hip Joint, Femoral Surface with Synthetic Substitute, Open Approach (ICD-10-PCS; principal; 2017-12-02 14:00)
DX: S72.012A Unspecified intracapsular fracture of left femur, initial encounter for closed fracture (principal); G93.40 Encephalopathy, unspecified; F02.81 Dementia in other diseases classified elsewhere, unspecified severity, with behavioral disturbance; F33.3 Major depressive disorder, recurrent, severe with psychotic symptoms; F20.0 Paranoid schizophrenia; F31.81 Bipolar II disorder; Y92.9 Unspecified place or not applicable; G30.9 Alzheimer's disease, unspecified; R41.0 Disorientation, unspecified; W17.89XA Other fall from one level to another, initial encounter; E11.9 Type 2 diabetes mellitus without complications
CPT/HCPCS: 36415; 70450; 71045; 72170; 73502; 80048; 80053; 81001; 81025; 82248; 83735; 84100; 84443; 84484; 85007; 85025; 85610; 85730; 86850; 86900; 86901; 87086; 93005; 93306; 94003; 94150; 99285; J2250; J2405; J8499